=== PATIENT | female | born 1950 | race Caucasian/White ===

== ENCOUNTER 2020-05-23 09:57 | Outpatient (REF) | payer MEDICARE, SELFPAY | END 2020-05-23 09:58 | disposition home or self-care (01) | LOC: HO.HAP 09:57 | PROVIDERS: Visit Provider Internal Medicine | DX: Z46.1 Encounter for fitting and adjustment of hearing aid (principal); E03.9 Hypothyroidism, unspecified; E78.00 Pure hypercholesterolemia, unspecified | CPT/HCPCS: 92700 ==

== ENCOUNTER 2020-07-06 09:05 | Outpatient (REF) | payer MEDICARE, SELFPAY ==
--- NOTE | 2020-07-06 09:13 | MM_ITS ---
EXAMINATION: MM SCREENING DIGITAL BREAST TOMOSYNTHESIS, BILATERAL CLINICAL INFORMATION: Screening. Asymptomatic. The lifetime risk of breast cancer based on the Tyrer-Cuzick Model is 7%. COMPARISON: Mammography: 04/29/2019, 04/14/2018 TECHNIQUE: Digital breast tomosynthesis is performed in both the craniocaudal and mediolateral oblique views along with computer-aided detection (CAD). Synthesized 2D images are generated from the tomosynthesis. FINDINGS: There are scattered areas of fibroglandular density (ACR BI-RADS breast composition Category b). There are no significant masses, abnormal calcifications, or other abnormalities. There are numerous bilateral round, rim, predominantly dermal calcifications again seen. No significant changes. MM/MM tomosynthesis screening BI IMPRESSION: No mammographic evidence of malignancy. ASSESSMENT: BI-RADS 2: Benign RECOMMENDATION: Routine annual mammography screening. This patient's information was entered into a reminder system with a target due date for their next mammogram.
== END 2020-07-06 09:06 | disposition home or self-care (01) ==
LOC: HO.MAMMO 09:05
PROVIDERS: PCP Internal Medicine; Visit Provider Internal Medicine
DX: Z12.31 Encounter for screening mammogram for malignant neoplasm of breast (principal)
CPT/HCPCS: 77063; 77067

== ENCOUNTER 2020-07-21 06:07 | Outpatient (REF) | payer MEDICARE, BC, SELFPAY ==
[2020-07-21 11:21] LABS: MANUAL DIFF FLAG NO
[2020-07-21 11:27] LABS: Basophils Percent Auto 0.3 % (0-2); Eosinophils Absolute Auto 0.3 X10*3/uL (0.0-0.4); Eosinophils Percent Auto 3.6 % (0-4); Hematocrit 40.1 % (37-47); Hemoglobin 13.3 g/dl (12.0-16.0); Imm Gran Abs Auto 0.03 X10*3/uL (0.00-0.03); Imm Gran Pct Auto 0.3 % (0.0-0.4); Lymphocytes Absolute Auto 1.9 X10*3/uL (1.2-4.9); Lymphocytes Percent Auto 22.1 % (20-40); Mean Corpuscular HGB Conc 33.2 g/dl (31.0-35.0); Mean Corpuscular Hemoglobin 31.1 pg (27.0-33.0); Mean Corpuscular Volume 93.9 fL (80-98); Mean Platelet Volume 11.1 fL (9.4-12.3); Monocytes Absolute Auto 0.8 X10*3/uL (0.1-1.2); Monocytes Percent Auto 8.6 % (2-11); Neutrophils Absolute Auto 5.7 X10*3/uL (2.0-8.3); Neutrophils Percent Auto 65.1 % (45-73); Platelet Count 245 X10*3/uL (160-400); Red Blood Count 4.27 X10*6/uL (4.20-5.50); Red Cell Distribution Width 12.1 % (11.0-16.0); White Blood Count 8.7 X10*3/uL (4.8-10.8)
[2020-07-21 12:00] LABS: Thyroid Stimulating Hormone 0.97 uIU/mL (0.32-4.0)
[2020-07-21 12:06] LABS: Alanine Aminotransferase 19 U/L (0-31); Albumin Level 4.2 g/dL (3.5-5.0); Alkaline Phosphatase 78 U/L (39-117); Anion Gap 11 (12-20); Aspartate Amino Transferase 17 U/L (5-31); Bilirubin Total 0.5 mg/dL (0.0-1.0); Blood Urea Nitrogen 17 mg/dL (9-16); Calcium 8.8 mg/dL (8.4-10.2); Carbon Dioxide 29 mmol/L (22-29); Chloride 106 mmol/L (96-108); Cholesterol 148 mg/dL; Estimated Glomerular Filt Rate > 60; Glucose Fasting 80 mg/dL (60-99); HDL Cholesterol 48 mg/dL; LDL Cholesterol Calculated 75 mg/dl; Sodium 142 mmol/L (135-145); Total Protein 6.6 g/dL (6.5-8.0); Triglycerides 128 mg/dL
== END 2020-07-21 06:08 | disposition home or self-care (01) ==
LOC: HO.HMGCLDS 06:07
PROVIDERS: PCP Internal Medicine; Visit Provider Internal Medicine
DX: E03.9 Hypothyroidism, unspecified (principal); E78.00 Pure hypercholesterolemia, unspecified
CPT/HCPCS: 36415; 80053; 80061; 84443; 85025

== ENCOUNTER 2020-09-26 08:15 | Outpatient (REF) | payer MEDICARE, BC, SELFPAY ==
--- NOTE | 2020-09-26 12:35 | MHC.AU.P13 ---
Adult Audiological Evaluation Date of Visit: 09/26/20 Reason for Appointment: Audiological evaluation in order to monitor the status of Ms. Gaxiola's hearing loss. She has a known bilateral mixed hearing loss. She notes that she's been having increased difficulty hearing on the phone, especially if there is background noise. She denies any changes to her medical history. Previous Hearing Test Results: [facility] [place], [place]/18/2019- Mixed hearing loss bilaterally, left ear worse than right. Ear History: History of Ear Wax Buildup: Both Ears Previous Ear Surgery: Stapedectomy Medical History: Medical History: Unremarkable Medical History Hearing Instrument History- Right Ear: Cataract Lens Generator: [employer] Model: Gorsh B70-SP Serial Number: [id number] Battery Size: 13 Repair Warranty: 06/18/2020 Loss and Damage Warranty: 06/18/2020 Dispensed By: [facility] Date of Fittin04/17/2017 Hearing Instrument History- Left Ear: Cataract Lens Generator: [employer] Model: Gorsh B70-SP Serial Number: [id number] Battery Size: 13 Warranty: 06/18/2020 Loss and Damage Warranty: 06/18/2020 Dispensed By: [facility] Date of Fittin04/17/2017 Otoscopy: Right Ear: Unremarkable Left Ear: Partially occluded with cerumen Tympanometry: Tympanometry performed due to: Conductive component found in audiometric results Right Ear: Normal Middle Ear System (Type A) Left Ear: Normal Middle Ear System (Type A) Hearing Evaluation: Transducer(s) Used:Insert Earphones, Bone Conduction Method: Conventional Audiometry Stimuli Used: Pure Tones Right Ear: Description of Hearing: Moderate mixed hearing loss at 250-1000 Hz, sloping to a moderately severe sensorineural hearing loss at 2000 Hz, a moderately severe mixed hearing loss at 4000 Hz, and a severe hearing loss 1426-3361 Hz. Left Ear: Description of Hearing: Severe sloping to profound mixed hearing loss from 250-8000 Hz. Speech Recognition Threshold (SRT): Method Used: Monitored Live Voice Stimuli Used: Spondee Words Right Ear: 60 dBHL Left Ear: 85 dBHL Word Discrimination: Method: Recorded Lists Word Lists Used: NU-6 Right Ear: 84% at 85 dBHL Left Ear: 80% at 105 dBHL Comparison: Compared to the most recent evaluation: Hearing is stable. Recommendations: Audiological re-evaluation in one year. Follow-up with physician for cerumen removal. Hearing aid maintenance performed today. Diagnosis: Primary Diagnosis: H90.6 Mixed Hearing Loss, Bilateral Secondary Diagnosis: H61.22 Impacted Cerumen, Left Ear Services Performed: Comprehensive Audiological Evaluation (CPT 33168) Tympanometry (CPT 31810) Signature: Provider: Carlos Christianson, CCC-A
== END 2020-09-26 08:16 | disposition home or self-care (01) ==
LOC: HO.SH 08:15
PROVIDERS: Visit Provider Internal Medicine
DX: H90.6 Mixed conductive and sensorineural hearing loss, bilateral (principal); H61.22 Impacted cerumen, left ear
CPT/HCPCS: 92557; 92567

== ENCOUNTER 2020-11-07 06:52 | Outpatient (REF) | payer MEDICARE, BC, SELFPAY ==
[2020-11-07 11:08] LABS: MANUAL DIFF FLAG NO
[2020-11-07 11:18] LABS: Basophils Percent Auto 0.4 % (0-2); Eosinophils Absolute Auto 0.2 X10*3/uL (0.0-0.4); Hematocrit 41.8 % (37-47); Hemoglobin 13.8 g/dl (12.0-16.0); Imm Gran Abs Auto 0.01 X10*3/uL (0.00-0.03); Imm Gran Pct Auto 0.1 % (0.0-0.4); Lymphocytes Absolute Auto 1.9 X10*3/uL (1.2-4.9); Mean Corpuscular Hemoglobin 30.9 pg (27.0-33.0); Mean Corpuscular Volume 93.5 fL (80-98); Mean Platelet Volume 11.7 fL (9.4-12.3); Monocytes Absolute Auto 0.6 X10*3/uL (0.1-1.2); Monocytes Percent Auto 7.5 % (2-11); Neutrophils Absolute Auto 4.6 X10*3/uL (2.0-8.3); Platelet Count 253 X10*3/uL (160-400); Red Blood Count 4.47 X10*6/uL (4.20-5.50); White Blood Count 7.3 X10*3/uL (4.8-10.8)
[2020-11-07 12:09] LABS: Alanine Aminotransferase 16 U/L (0-31); Albumin Level 4.4 g/dL (3.5-5.0); Alkaline Phosphatase 79 U/L (39-117); Anion Gap 15 (12-20); Aspartate Amino Transferase 17 U/L (5-31); Bilirubin Total < 0.2 mg/dL (0.0-1.0); Blood Urea Nitrogen 16 mg/dL (9-16); Calcium 9.2 mg/dL (8.4-10.2); Carbon Dioxide 27 mmol/L (22-29); Chloride 105 mmol/L (96-108); Cholesterol 150 mg/dL; Estimated Glomerular Filt Rate > 60; Glucose Fasting 88 mg/dL (60-99); HDL Cholesterol 50 mg/dL; LDL Cholesterol Calculated 83 mg/dl; Potassium 3.9 mmol/L (3.3-5.1); Sodium 143 mmol/L (135-145); Total Protein 6.9 g/dL (6.5-8.0); Triglycerides 89 mg/dL
[2020-11-07 12:11] LABS: Thyroid Stimulating Hormone 0.27 uIU/mL (0.32-4.0)
== END 2020-11-07 06:53 | disposition home or self-care (01) ==
LOC: HO.HMGCLDS 06:52
PROVIDERS: PCP Internal Medicine; Visit Provider Internal Medicine
DX: E03.9 Hypothyroidism, unspecified (principal); E78.00 Pure hypercholesterolemia, unspecified; Z68.25 Body mass index [BMI] 25.0-25.9, adult
CPT/HCPCS: 36415; 80053; 80061; 84443; 85025

== ENCOUNTER 2020-11-16 10:32 | Outpatient (REF) | payer MEDICARE, BC, SELFPAY | END 2020-11-16 10:33 | disposition home or self-care (01) | LOC: HO.HMGCLDS 10:32 | PROVIDERS: PCP Internal Medicine; Visit Provider Internal Medicine | DX: E03.9 Hypothyroidism, unspecified (principal); E78.00 Pure hypercholesterolemia, unspecified; Z13.31 Encounter for screening for depression | CPT/HCPCS: 36415; 84443 ==

== ENCOUNTER 2020-12-30 06:32 | Outpatient (REF) | payer MEDICARE, BC, SELFPAY ==
[2020-12-30 11:15] LABS: MANUAL DIFF FLAG NO
[2020-12-30 11:27] LABS: Basophils Percent Auto 0.4 % (0-2); Eosinophils Absolute Auto 0.2 X10*3/uL (0.0-0.4); Eosinophils Percent Auto 2.7 % (0-4); Hematocrit 39.9 % (37-47); Hemoglobin 13.2 g/dl (12.0-16.0); Imm Gran Abs Auto 0.02 X10*3/uL (0.00-0.03); Imm Gran Pct Auto 0.3 % (0.0-0.4); Lymphocytes Absolute Auto 1.8 X10*3/uL (1.2-4.9); Lymphocytes Percent Auto 24.1 % (20-40); Mean Corpuscular HGB Conc 33.1 g/dl (31.0-35.0); Mean Corpuscular Volume 93.7 fL (80-98); Mean Platelet Volume 10.8 fL (9.4-12.3); Monocytes Absolute Auto 0.5 X10*3/uL (0.1-1.2); Monocytes Percent Auto 7.2 % (2-11); Neutrophils Absolute Auto 4.8 X10*3/uL (2.0-8.3); Neutrophils Percent Auto 65.3 % (45-73); Platelet Count 281 X10*3/uL (160-400); Red Blood Count 4.26 X10*6/uL (4.20-5.50); Red Cell Distribution Width 12.2 % (11.0-16.0); White Blood Count 7.3 X10*3/uL (4.8-10.8)
[2020-12-30 11:49] LABS: Alanine Aminotransferase 19 U/L (0-31); Albumin Level 4.3 g/dL (3.5-5.0); Alkaline Phosphatase 79 U/L (39-117); Anion Gap 12 (12-20); Aspartate Amino Transferase 16 U/L (5-31); Bilirubin Total 0.4 mg/dL (0.0-1.0); Blood Urea Nitrogen 19 mg/dL (9-16); Calcium 9.1 mg/dL (8.4-10.2); Carbon Dioxide 28 mmol/L (22-29); Chloride 103 mmol/L (96-108); Cholesterol 168 mg/dL; Estimated Glomerular Filt Rate > 60; Glucose Fasting 86 mg/dL (60-99); HDL Cholesterol 54 mg/dL; LDL Cholesterol Calculated 96 mg/dl; Potassium 3.5 mmol/L (3.3-5.1); Sodium 139 mmol/L (135-145); Total Protein 6.7 g/dL (6.5-8.0); Triglycerides 90 mg/dL
[2020-12-30 12:12] LABS: Thyroid Stimulating Hormone 0.94 uIU/mL (0.32-4.0)
== END 2020-12-30 06:33 | disposition home or self-care (01) ==
LOC: HO.HMGCLDS 06:32
PROVIDERS: PCP Internal Medicine; Visit Provider Internal Medicine
DX: Z00.00 Encounter for general adult medical examination without abnormal findings (principal); E11.9 Type 2 diabetes mellitus without complications; E03.9 Hypothyroidism, unspecified
CPT/HCPCS: 36415; 80053; 80061; 84443; 85025

== ENCOUNTER 2021-03-29 06:25 | Outpatient (REF) | payer MEDICARE, BC, SELFPAY ==
[2021-03-29 11:11] LABS: MANUAL DIFF FLAG NO
[2021-03-29 11:23] LABS: Basophils Percent Auto 0.3 % (0-2); Eosinophils Absolute Auto 0.2 X10*3/uL (0.0-0.4); Eosinophils Percent Auto 2.5 % (0-4); Hematocrit 38.8 % (37-47); Hemoglobin 12.8 g/dl (12.0-16.0); Imm Gran Abs Auto 0.02 X10*3/uL (0.00-0.03); Imm Gran Pct Auto 0.3 % (0.0-0.4); Lymphocytes Absolute Auto 1.9 X10*3/uL (1.2-4.9); Lymphocytes Percent Auto 24.1 % (20-40); Mean Corpuscular Hemoglobin 31.4 pg (27.0-33.0); Mean Corpuscular Volume 95.1 fL (80-98); Monocytes Absolute Auto 0.6 X10*3/uL (0.1-1.2); Monocytes Percent Auto 7.5 % (2-11); Neutrophils Absolute Auto 5.1 X10*3/uL (2.0-8.3); Neutrophils Percent Auto 65.3 % (45-73); Platelet Count 258 X10*3/uL (160-400); Red Blood Count 4.08 X10*6/uL (4.20-5.50); Red Cell Distribution Width 12.4 % (11.0-16.0); White Blood Count 7.8 X10*3/uL (4.8-10.8)
[2021-03-29 12:19] LABS: Alanine Aminotransferase 26 U/L (0-31); Albumin Level 4.1 g/dL (3.5-5.0); Alkaline Phosphatase 81 U/L (39-117); Anion Gap 11 (12-20); Aspartate Amino Transferase 18 U/L (5-31); Bilirubin Total 0.6 mg/dL (0.0-1.0); Blood Urea Nitrogen 17 mg/dL (9-16); Calcium 9.2 mg/dL (8.4-10.2); Carbon Dioxide 27 mmol/L (22-29); Chloride 107 mmol/L (96-108); Cholesterol 155 mg/dL; Estimated Glomerular Filt Rate > 60; HDL Cholesterol 52 mg/dL; LDL Cholesterol Calculated 82 mg/dl; Sodium 141 mmol/L (135-145); Total Protein 6.5 g/dL (6.5-8.0); Triglycerides 105 mg/dL
[2021-03-29 12:43] LABS: Thyroid Stimulating Hormone 1.47 uIU/mL (0.32-4.0)
[2021-03-29 12:53] LABS: Glucose Fasting 81 mg/dL (60-99)
== END 2021-03-29 06:26 | disposition home or self-care (01) ==
LOC: HO.HMGCLDS 06:25
PROVIDERS: PCP Internal Medicine; Visit Provider Internal Medicine
DX: Z00.00 Encounter for general adult medical examination without abnormal findings (principal); E11.9 Type 2 diabetes mellitus without complications; E03.9 Hypothyroidism, unspecified
CPT/HCPCS: 36415; 80053; 80061; 84443; 85025

== ENCOUNTER 2021-04-05 13:48 | Outpatient (REF) | payer SELFPAY ==
--- NOTE | 2021-04-05 14:13 | MHC.AU.P13 ---
Hearing Instrument Problem Date of Visit: 04/05/21 Right Ear: Puller Out: [employer] Model: BOLERO B70-SP Serial Number: [id number] Repair Warranty: 06/18/2020 Loss and Damage Warranty: 06/18/2020 Battery Size: 13 Color: CHAMPAGNE Tubin DOUBLE THICK Type of Mold: MICROSONIC CANAL SHELL Dispensed By: [facility] Date of Fittin04/17/2017 Left Ear: Puller Out: [employer] Model: BOLERO B70-SP Serial Number: [id number] Repair Warranty: 06/18/2020 Loss and Damage Warranty: 06/18/2020 Battery Size: 13 Color: CHAMPAGNE Tubing: #13 DOUBLE THICK Dispensed By: [facility] Date of Fittin04/17/2017 Follow-Up Summary: Patient had wax in tubing. Both aids cleaned and tubings changed - both amplifying clearly. Patient having trouble with right program switch - it does change but very hard to push. Tried cleaning - recommend sending to [employer] for repair. Patient will keep trying, see if it gets better when humidity drops, and will drop off if she wishes to get repaired. Quoted $315.00 Signature: Provider:
== END 2021-04-05 13:49 | disposition home or self-care (01) ==
LOC: HO.HAP 13:48
PROVIDERS: Visit Provider Internal Medicine
DX: Z46.1 Encounter for fitting and adjustment of hearing aid (principal); H90.6 Mixed conductive and sensorineural hearing loss, bilateral
CPT/HCPCS: 99499

== ENCOUNTER 2021-05-16 10:59 | Outpatient (REF) | payer SELFPAY ==
--- NOTE | 2021-05-16 11:21 | MHC.AU.P13 ---
Hearing Instrument Maintenance Date of Visit: 05/16/21 Right Ear: Driving School Instructor: Phon[employer] Model: BOLERO B70-SP Serial Number: [id number] Repair Warranty: 06/18/2020 Loss and Damage Warranty: 06/18/2020 Battery Size: 13 Color: CHAMPAGNE Tubin DOUBLE THICK Type of Mold: MICROSONIC CANAL SHELL Dispensed By: [facility] Date of Fittin04/17/2017 Left Ear: Driving School Instructor: Phon[employer] Model: BOLERO B70-SP Serial Number: [id number] Repair Warranty: 06/18/2020 Loss and Damage Warranty: 06/18/2020 Battery Size: 13 Color: CHAMPAGNE Tubing: #13 DOUBLE THICK Dispensed By: [facility] Date of Fittin04/17/2017 Follow-Up Summary: Right aid and old aids brought in for cleaning. All aids cleaned and retubed - all amplifying clearly. Recommendations: Recommendations: Hearing instrument follow-up or maintenance as needed. Diagnosis Code(s): Primary Diagnosis: H90.6 Mixed Hearing Loss, Bilateral Signature: Provider: ISAMAR Gilmore-
== END 2021-05-16 11:00 | disposition home or self-care (01) ==
LOC: HO.HAP 10:59
PROVIDERS: Visit Provider Internal Medicine
DX: Z01.419 Encounter for gynecological examination (general) (routine) without abnormal findings (principal)
CPT/HCPCS: 99499

== ENCOUNTER 2021-08-16 08:45 | Outpatient (REF) | payer MEDICARE, BC, SELFPAY ==
--- NOTE | ~2021-08-16 | MM_ITS ---
EXAMINATION: BONE DENSITOMETRY CLINICAL INDICATION: Asymptomatic menopausal state. COMPARISON: Baseline BD dated 12/29/2015. TECHNIQUE: Using a Wearable Security DXA System (software version: 13.1) manufactured by [employer], dual-energy x-ray absorptiometry was performed of the lumbar spine and left hip. The images are of good technical quality. Summary results are attached. FINDINGS: AP SPINE L1-L4: Current: BMD 0.767 g/cm2, Z-score -1.4, T-score -3.4, osteoporosis, 1.2% decrease from baseline (<5% change is not significant). Baseline: BMD 0.776 g/cm2. LEFT FEMUR, NECK: Current: BMD 0.645 g/cm2, Z-score -0.9, T-score -2.8, osteoporosis. Baseline: BMD 0.799 g/cm2. LEFT FEMUR, TOTAL: Current: BMD 0.559 g/cm2, Z-score -1.8, T-score -3.6, osteoporosis, 24.8% decrease from baseline (<5% change is not significant). Baseline: BMD 0.743 g/cm2. IDENTIFIED RISK FACTORS: Menopause. HISTORY OF FRACTURE: None listed. MEDICATIONS: Multivitamins. MM/XR DEXA axial skeleton IMPRESSION: 1. DIAGNOSIS: Osteoporosis based on the lowest T-score value of -3.6 in the total femur applying World Health Organization criteria. 2. 10-YEAR FRACTURE RISK PREDICTION, FRAX: According to the guidelines, FRAX calculation should only be performed on patients in the osteopenia bone density category. 3. Treatment Recommendations: NOF guidelines recommend consideration for treatment in postmenopausal women and men age 50 and older presenting with the following: -A hip or vertebral (clinical or morphometric) fracture. -T-score less than or equal to -2.5 at the femoral neck or spine after appropriate evaluation to exclude secondary causes. -Low bone mass at the hip or spine and a 10-year fracture probability by FRAX of greater than or equal to 3% for hip fracture or greater than or equal to 20% for major osteoporotic fracture based on the [place] adapted WHO algorithm. 4. Other Recommendations: All treatment decisions require clinical judgment and consideration of individual patient factors, including patient preferences, comorbidities, previous drug use, risk factors not captured in the FRAX model (e.g. frailty, falls, vitamin D deficiency, increased bone turnover, interval significant decline in bone density) and possible under or overestimation of fracture risk by FRAX. Additional medical evaluation for secondary cause of low bone mineral density may be appropriate. FUTURE SCAN RECOMMENDATION: People with diagnosed cases of osteoporosis or at high risk for fracture should have regular bone mineral density tests. For patients eligible for Medicare, routine testing is allowed once every 2 years. The testing frequency can be increased to one year for patients who have rapidly progressing disease, those who are receiving or discontinuing medical therapy to restore bone mass, or have additional risk factors.
--- NOTE | ~2021-08-16 | MM_ITS ---
EXAMINATION: MM SCREENING DIGITAL BREAST TOMOSYNTHESIS, BILATERAL CLINICAL INFORMATION: Screening. Asymptomatic. The lifetime risk of breast cancer based on the Tyrer-Cuzick Model is 7%. COMPARISON: Mammography: 07/06/2020, 04/29/2019, 04/14/2018 TECHNIQUE: Digital breast tomosynthesis is performed in both the craniocaudal and mediolateral oblique views along with computer-aided detection (CAD). Synthesized 2D images are generated from the tomosynthesis. Additional right MLO view is provided. FINDINGS: There are scattered areas of fibroglandular density (ACR BI-RADS breast composition Category b). There are no significant masses, abnormal calcifications, or other abnormalities. No significant changes from prior exams. MM/MM tomosynthesis screening BI IMPRESSION: No mammographic evidence of malignancy. ASSESSMENT: BI-RADS 2: Benign RECOMMENDATION: Routine annual mammography screening. This patient's information was entered into a reminder system with a target due date for their next mammogram.
== END 2021-08-16 08:46 | disposition home or self-care (01) ==
LOC: HO.MAMMO 08:45
PROVIDERS: Visit Provider Obstetrics & Gynecology
DX: Z12.31 Encounter for screening mammogram for malignant neoplasm of breast (principal); Z13.820 Encounter for screening for osteoporosis; M81.0 Age-related osteoporosis without current pathological fracture; Z78.0 Asymptomatic menopausal state; Z79.899 Other long term (current) drug therapy
CPT/HCPCS: 77063; 77067; 77080

== ENCOUNTER 2021-10-30 08:21 | Outpatient (REF) | payer MEDICARE, BC, SELFPAY ==
--- NOTE | 2021-11-06 12:09 | MHC.AU.AHA ---
Adult Audiological Evaluation Date of Visit: 10/30/21 Child Care Supervisor Used: Not Applicable Reason for Appointment: Audiologic re-evaluation to determine possible change in hearing abilityJuan F Mederos has a history of asymmetric mixed hearing loss due to history of Otosclerosis with previous Stapedectomy surgery. Previous Hearing Test Results: 09/26/2020 [facility] Right ear - Moderate to severe mixed hearing loss with 84% speech understanding at 85 dB HL Left ear - Severe to profound mixed hearing loss with 80% speech discrimination at 105 dB HL Ear History: Previous Ear Surgery: Stapedectomy Medical History: Medical History: Thyroid Disease Medication List: Levothyroxine and Atorvastatin Hearing Instrument History- Right Ear: Aerospace Physiological Technician: [employer] Model: Hospitality [employer]ers0-SP Serial Number: [id number] Battery Size: 13 Repair Warranty: 06/18/2020 Loss and Damage Warranty: 06/18/2020 Dispensed By: [facility] Date of Fittin04/17/2017 Hearing Instrument History- Left Ear: Aerospace Physiological Technician: [employer] Model: [place] B70-SP Serial Number: [id number] Battery Size: 13 Warranty: 06/18/2020 Loss and Damage Warranty: 06/18/2020 Dispensed By: [facility] Date of Fittin04/17/2017 Otoscopy: Right Ear: Unremarkable Left Ear: Unremarkable Tympanometry: Tympanometry performed due to: History of Otosclerosis Right Ear: Normal Middle Ear System (Type A) Left Ear: Normal Middle Ear System (Type A) Hearing Evaluation: Transducer(s) Used: Insert Earphones Bone Conduction Method: Conventional Audiometry Stimuli Used: Pure Tones Right Ear: Description of Hearing: Moderate to severe mixed hearing loss Left Ear: Description of Hearing: Severe to profound mixed hearing loss Speech Recognition Threshold (SRT): Method Used: Monitored Live Voice Stimuli Used: Spondee Words Right Ear: 50 dB HL Left Ear: 80 dB HL Word Discrimination: Method: Recorded Lists Word Lists Used: NU-6 Right Ear: 88% at 85 dB HL Left Ear: 92% at 105 dB HL Most Comfortable Level (MCL): Right Ear: 85 dB HL Left Ear: 105 dB HL Comparison: Compared to the most recent evaluation: Hearing is stable. Recommendations: Audiological re-evaluation in one year. Hearing aid maintenance performed today. Diagnosis: Primary Diagnosis: H90.6 Mixed Hearing Loss, Bilateral Signature: Provider: Carlos Orellana, [facility]
== END 2021-10-30 08:22 | disposition home or self-care (01) ==
LOC: HO.SH 08:21
PROVIDERS: Visit Provider Internal Medicine
DX: Z01.118 Encounter for examination of ears and hearing with other abnormal findings (principal); H90.6 Mixed conductive and sensorineural hearing loss, bilateral
CPT/HCPCS: 92557; 92567

== ENCOUNTER 2021-11-07 06:33 | Outpatient (REF) | payer MEDICARE, BC, SELFPAY ==
[2021-11-07 12:01] LABS: Cholesterol 142 mg/dL; HDL Cholesterol 50 mg/dL; LDL Cholesterol Calculated 65 mg/dl; Triglycerides 137 mg/dL
[2021-11-07 12:09] LABS: Thyroid Stimulating Hormone 0.19 uIU/mL (0.32-4.0)
== END 2021-11-07 06:34 | disposition home or self-care (01) ==
LOC: HO.HMGCLDS 06:33
PROVIDERS: Visit Provider Internal Medicine
DX: E03.9 Hypothyroidism, unspecified (principal); E11.9 Type 2 diabetes mellitus without complications
CPT/HCPCS: 36415; 80061; 84443

== ENCOUNTER 2022-03-22 10:45 | Outpatient (REF) | payer SELFPAY | END 2022-03-22 10:46 | disposition home or self-care (01) | LOC: HO.HAP 10:45 | PROVIDERS: Visit Provider Internal Medicine | DX: Z46.1 Encounter for fitting and adjustment of hearing aid (principal); H90.3 Sensorineural hearing loss, bilateral | CPT/HCPCS: 99499; V5299 ==

== ENCOUNTER 2022-05-11 06:55 | Outpatient (REF) | payer MEDICARE, BC, SELFPAY ==
[2022-05-11 11:45] LABS: Cholesterol 164 mg/dL; HDL Cholesterol 61 mg/dL; LDL Cholesterol Calculated 87 mg/dl; Triglycerides 84 mg/dL
[2022-05-11 11:53] LABS: Thyroid Stimulating Hormone 1.23 uIU/mL (0.32-4.0)
== END 2022-05-11 06:56 | disposition home or self-care (01) ==
LOC: HO.HMGCLDS 06:55
PROVIDERS: PCP Internal Medicine; Visit Provider Internal Medicine
DX: Z00.00 Encounter for general adult medical examination without abnormal findings (principal)
CPT/HCPCS: 36415; 80061; 84443

== ENCOUNTER 2022-05-17 09:44 | Outpatient (REF) | payer MEDICARE, BC, SELFPAY | END 2022-05-17 09:45 | disposition home or self-care (01) | LOC: HO.HAP 09:44 | PROVIDERS: Visit Provider Internal Medicine | DX: Z13.89 Encounter for screening for other disorder (principal) ==

== ENCOUNTER 2022-05-21 12:56 | Outpatient (REF) | payer SELFPAY | END 2022-05-21 12:57 | disposition home or self-care (01) | LOC: HO.HAP 12:56 | PROVIDERS: Visit Provider Internal Medicine | DX: Z46.1 Encounter for fitting and adjustment of hearing aid (principal) | CPT/HCPCS: 99499 ==

== ENCOUNTER 2022-08-22 08:48 | Outpatient (REF) | payer MEDICARE, BC, SELFPAY ==
--- NOTE | ~2022-08-22 | MM_ITS ---
EXAMINATION: MM SCREENING DIGITAL BREAST TOMOSYNTHESIS, BILATERAL CLINICAL INFORMATION: Screening. Asymptomatic. Family history breast cancer, mother. The lifetime risk of breast cancer based on the Tyrer-Cuzick Model is 6%. COMPARISON: Mammography: 08/16/2021, 07/06/2020, 04/29/2019 TECHNIQUE: Digital breast tomosynthesis is performed in both the craniocaudal and mediolateral oblique views along with computer-aided detection (CAD). Synthesized 2D images are generated from the tomosynthesis. Additional left MLO view is provided. FINDINGS: There are scattered areas of fibroglandular density (ACR BI-RADS breast composition Category b). There are no significant masses, abnormal calcifications, or other abnormalities. There are no significant changes from prior exams. No developing density or architectural abnormality. MM/MM tomosynthesis screening BI IMPRESSION: No mammographic evidence of malignancy. ASSESSMENT: BI-RADS 1: Negative RECOMMENDATION: Routine annual mammography screening. This patient's information was entered into a reminder system with a target due date for their next mammogram.
== END 2022-08-22 08:49 | disposition home or self-care (01) ==
LOC: HO.MAMMO 08:48
PROVIDERS: Visit Provider Internal Medicine
DX: Z12.31 Encounter for screening mammogram for malignant neoplasm of breast (principal)
CPT/HCPCS: 77063; 77067

== ENCOUNTER 2022-11-09 06:49 | Outpatient (REF) | payer MEDICARE, BC, SELFPAY ==
[2022-11-09 11:54] LABS: Cholesterol 161 mg/dL; HDL Cholesterol 55 mg/dL; LDL Cholesterol Calculated 86 mg/dl; Triglycerides 103 mg/dL
[2022-11-09 12:11] LABS: Thyroid Stimulating Hormone 1.33 uIU/mL (0.32-4.0)
== END 2022-11-09 06:50 | disposition home or self-care (01) ==
LOC: HO.HMGCLDS 06:49
PROVIDERS: PCP Internal Medicine; Visit Provider Internal Medicine
DX: E03.9 Hypothyroidism, unspecified (principal); E78.5 Hyperlipidemia, unspecified
CPT/HCPCS: 36415; 80061; 84443

== ENCOUNTER 2023-03-15 10:35 | Outpatient (REF) | payer MEDICARE, BC, SELFPAY | END 2023-03-15 10:36 | disposition home or self-care (01) | LOC: HO.SH 10:35 | PROVIDERS: Visit Provider Internal Medicine | DX: Z01.118 Encounter for examination of ears and hearing with other abnormal findings (principal); H90.6 Mixed conductive and sensorineural hearing loss, bilateral | CPT/HCPCS: 92557 ==

== ENCOUNTER 2023-03-15 11:54 | Outpatient (REF) | payer SELFPAY ==
--- NOTE | 2023-03-15 12:13 | MHC.AU.HA3 ---
Hearing Instrument Follow-Up- Binaural Date of Visit: 03/15/23 Right Ear: Ousmane, Model, Color, Serial Number: Agustin George B70-SP SN: [id number] Color: Champagne Manager New Product Repair Warranty: 06/18/2020 Manager New Product Loss and Damage Warranty: 06/18/2020 Battery Size: 13 Earmold/Dome/CShell/SlimTip:Microsonic acrylic canal shell with small vent Dispensed By: [facility] Date of Fittin04/17/2017 Left Ear: Ousmane, Model, Color, Serial Number: Agustin George B70-SP SN: [id number] Color: Champagne Manager New Product Repair Warranty: 06/18/2020 Manager New Product Loss and Damage Warranty: 06/18/2020 Battery Size: 13 Earmold/Dome/CShell/SlimTip: Microsonic acrylic canal shell with small vent Dispensed By: [facility] Date of Fittin04/17/2017 Follow-Up Summary: Rosa M returned for routine hearing aid maintenance following updated audiogram (see separate report). The left tubing has been continuously slipping out of the ear mold. Cleaned both hearing aids and ear molds. Replaced tubing. Provided green ear mold vent cleaning tool at Rosa M's request. Otherwise, the hearing aids have been working well and Rosa M is having no other issues at this time. Briefly discussed possibility of new hearing aids due to the age of her current pair. Rosa M is satisfied with her hearing aids at this time as they are still meeting her needs but will consider new hearing aids, if necessary, in the future. Recommendations: Hearing instrument maintenance in 6 months, or sooner if needed. Diagnosis Code(s): Primary Diagnosis: H90.6 Mixed Hearing Loss, Bilateral Signature: Provider: Angélica Bhatti, [facility]
== END 2023-03-15 11:55 | disposition home or self-care (01) ==
LOC: HO.HAP 11:54
PROVIDERS: Visit Provider Internal Medicine
DX: Z46.1 Encounter for fitting and adjustment of hearing aid (principal); H90.6 Mixed conductive and sensorineural hearing loss, bilateral
CPT/HCPCS: 92593

== ENCOUNTER 2023-05-20 06:25 | Outpatient (REF) | payer MEDICARE, BC, SELFPAY ==
[2023-05-20 11:18] LABS: MANUAL DIFF FLAG NO
[2023-05-20 11:50] LABS: Basophils Percent Auto 0.4 % (0-2); Eosinophils Absolute Auto 0.2 X10*3/uL (0.0-0.4); Eosinophils Percent Auto 2.4 % (0-4); Hematocrit 39.4 % (37.0-47.0); Hemoglobin 13.2 g/dl (12.0-16.0); Imm Gran Abs Auto 0.02 X10*3/uL (0.00-0.03); Imm Gran Pct Auto 0.2 % (0.0-0.4); Lymphocytes Absolute Auto 1.8 X10*3/uL (1.2-4.9); Lymphocytes Percent Auto 21.8 % (20-40); Mean Corpuscular HGB Conc 33.5 g/dl (31.0-35.0); Mean Corpuscular Hemoglobin 31.4 pg (27.0-33.0); Mean Corpuscular Volume 93.8 fL (80.0-98.0); Mean Platelet Volume 11.3 fL (9.4-12.3); Monocytes Absolute Auto 0.7 X10*3/uL (0.1-1.2); Monocytes Percent Auto 8.2 % (2-11); Neutrophils Absolute Auto 5.4 x10*3/uL (2.0-8.3); Platelet Count 251 X10*3/uL (160-400); Red Cell Distribution Width 12.6 % (11.0-16.0); White Blood Count 8.1 X10*3/uL (4.8-10.8)
[2023-05-20 12:05] LABS: Alanine Aminotransferase 22 U/L (0-31); Alkaline Phosphatase 71 U/L (39-117); Anion Gap 11 (12-20); Aspartate Amino Transferase 23 U/L (5-31); Bilirubin Total 0.5 mg/dL (0.0-1.0); Blood Urea Nitrogen 17 mg/dL (9-16); Calcium 9.1 mg/dL (8.4-10.2); Carbon Dioxide 26 mmol/L (22-29); Chloride 108 mmol/L (96-108); Cholesterol 160 mg/dL (<200); Estimated Glomerular Filt Rate > 60; Glucose Fasting 96 mg/dL (60-99); HDL Cholesterol 59 mg/dL (>40); LDL Cholesterol Calculated 78 mg/dL (<100); Potassium 3.6 mmol/L (3.3-5.1); Sodium 141 mmol/L (135-145); Total Protein 6.6 g/dL (6.5-8.0); Triglycerides 119 mg/dL (<150)
[2023-05-20 12:27] LABS: Thyroid Stimulating Hormone 0.95 uIU/mL (0.32-4.0)
== END 2023-05-20 06:26 | disposition home or self-care (01) ==
LOC: HO.HMGCLDS 06:25
PROVIDERS: PCP Internal Medicine; Visit Provider Internal Medicine
DX: D64.9 Anemia, unspecified (principal); E03.9 Hypothyroidism, unspecified; N28.9 Disorder of kidney and ureter, unspecified; E78.5 Hyperlipidemia, unspecified
CPT/HCPCS: 36415; 80053; 80061; 84443; 85025

== ENCOUNTER 2023-05-22 09:20 | Outpatient (AMB) | payer MEDICARE, BC, SELFPAY ==
[2023-05-22 09:27] VITALS: BP 130/52; PULSE 60; O2SAT 99; BMI 24.4
--- NOTE | 2023-05-22 09:27 | MHC.PC.OV ---
Vital Signs 05/22/23 09:27 Height 5 ft Weight 125 lb BMI 24.4 BP 130/52 L Blood Pressure Location Lt brachial Position Sitting Pulse 60 Pulse Source Pulse Oximeter Pulse Oximetry (%) 99 Oxygen Delivery Method Room Air Intake Visit Reasons: 4 mth f/u Automation Software Engineer: Not Required per policy Accompanied by: Self / Same As Patient Allergies bee venom protein (honey bee) Allergy (Severe, Verified 05/22/23 09:27) Anaphylaxis Medication List - Last Reconciled 05/22/23 by Carlos Spivey MD atorvastatin 20 mg PO DAILY levothyroxine 112 mcg PO DAILY Tobacco use date assessed: 11/14/22 Fall risk assessment: No Falls in past year Last assessed Fall Risk: 05/22/23 Dental Screening Dental Screen Date: 05/22/23 Did you have a dental visit in the last 12 months?: Yes Did you have a dental problem in the last 6 months where you did not have access to dental care?: No Was dental information given to patient?: Patient has dentist HPI 4 mth f/u HPI Details hyperlipidemia and hypothyroidism; stable on rx PFSH Medical History Post-menopausal Hypertension History of high cholesterol Thyroid disease Surgical History History of colonoscopy H/O stapedectomy Hx of tubal ligation Hx of tonsillectomy Family History Mother Dementia GERD (gastroesophageal reflux disease) Mental health disorder History of breast cancer Father No problems noted. Social History Housing: House Alcohol intake: current Alcohol intake frequency: holidays/special occasions only Patient Tobacco Use Status: Never used Tobacco e-Cigarette/Vaping Use: Currently Using Second Hand Smoke Exposure: Yes service: No Current occupational status: retired Current occupational exposures/hazards: No Cognitive needs: No Hearing needs: Yes Vision needs: Yes Questionnaire PHQ-9 Over the last 2 weeks, how often have you been bothered by any of the following problems? 1. Little interest or pleasure in doing things: not at all 2. Feeling down, depressed, or hopeless: not at all 3. Trouble falling or staying asleep, or sleeping too much: not at all 4. Feeling tired or having little energy: not at all 5. Poor appetite or overeating: not at all 6. Feeling bad about yourself - or that you are a failure or have let yourself or your family down: not at all 7. Trouble concentrating on things, such as reading the newspaper or watching television: not at all 8. Moving or speaking so slowly that other people could have noticed. Or the opposite - being so fidgety or restless that you have been moving around a lot more than usual: not at all 9. Thoughts that you would be better off or of hurting yourself in some way: not at all Total score: 0 Depression Screening Interpretation: Negative Depression Screening Done: Yes 79405 - PHQ-9 Billing: Yes Source: Developed by Drs. Aubrey Sunshine, Mary Grace Wiseman, Breezy Edmond and colleagues, with an educational nithin from [facility]. Thrive Questionnaire Date Thrive assessed: 11/14/22 AUDIT C Alcohol Use Questionnaire (AUDIT-C) 1. How often do you have a drink containing alcohol?: Never Total Score: 0 Score Reviewed/Action Taken: Yes RAMSEY-7 AMB Questionnaire RAMSEY-7 Date RAMSEY - 7 assessed: 11/14/22 Source: Developed by Drs. Aubrey Sunshine, Mary Grace Wiseman, Breezy Edmond and colleagues, with an educational nithin from [facility]. Review of Systems Const Denies chills, Denies headache(s) and Denies weight loss ENT Denies headache(s) Card Denies chest pain, Denies syncope, Denies irregular heart rhythm and Denies dyspnea Resp Denies chest congestion, Denies cough and Denies dyspnea GI Denies abdominal pain, Denies change in stool character, Denies nausea and Denies vomiting Musc Denies deformity and Denies joint swelling Neuro Denies syncope and Denies headache(s) Physical exam (Primary Care) Vital Signs: Last Vital Signs Pulse 60 05/22/23 09:27 BP 130/52 L 05/22/23 09:27 Pulse Ox 99 05/22/23 09:27 Oxygen Delivery Method Room Air 05/22/23 09:27 BMI result Body Mass Index 24.4 Tobacco/Smoking Status: Tobacco use Status Tobacco use date assessed 11/14/22 05/22/23 09:28 Patient Tobacco Use Status Never used Tobacco 05/22/23 09:28 e-Cigarette/Vaping Use Currently Using 05/22/23 09:28 PHQ-9: PHQ-9 Score PHQ-9: Total score 0 05/22/23 09:48 Depression Screening Interpretation: Negative Thrive Assessment: Date of Thrive Assessment Date Thrive assessed 11/14/22 05/22/23 09:28 Const General: cooperative, comfortable, no acute distress and alert Neck Neck: Yes no lymphadenopathy Thyroid: Thyroid normal Resp Effort & Inspection: normal respiratory effort Auscultation: clear to auscultation bilaterally Percussion: percussion normal Cardio Jugular venous distension: no JVD Palpation: normal PMI Rate: regular rate Rhythm: regular rhythm Heart sounds: S1 normal heart sound present and S2 normal heart sound present GI Inspection: Yes normal to inspection Palpation (GI): No hepatosplenomegaly present Skin General skin exam: no rashes or lesions noted Extrem General: Yes no clubbing, cyanosis or edema Office Procedures Flu Questionnaire Does the patient have a severe egg allergy?: No Does the patient have severe life threatening allergies?: No Does the patient have a fever or illness today?: No Has the patient ever had Guillain-[place] Syndrome?: No Has the patient ever had any past reaction to a flu shot?: No Immunizations flu vacc [id number] 6mos up(PF) 60 mcg(15 mcgx4)/0.5 mL IM syringe Performing Provider: Carlos Spivey MD Performing Location: [facility] Administered by: STEPHANIE Norris on 05/22/23 09:48 Dose Route Admin Location Dispensed Lot Number Expiration Date NDC Office Secretary 0.5 mL IM Right Deltoid 0.5 mL [id number] 02/16/24 72106-383-64 Intapp VIS Given Date VIS Provided VIS Publication Date 05/22/23 Single Vaccine 21 Eligibility Eligibility Date Funding Source Not [facility] Eligible 05/22/23 Private Assessment and Plan Assessment & Plan (1) Hypothyroid: Code(s): E03.9 - Hypothyroidism, unspecified Plan: stable; same rx (2) Hyperlipidemia: Code(s): E78.5 - Hyperlipidemia, unspecified Plan: stable; same rx Orders: Orders Influenza [id number] Immunization Today Z23 - Encounter for immunization Lipid Panel Today E78.5 - Hyperlipidemia, unspecified Thyroid Stimulating Hormone Today E03.9 - Hypothyroidism, unspecified Coding Level of Care Code Est Pt Level 3 (93120) Diagnoses Hypothyroid E03.9 Hyperlipidemia E78.5
== END 2023-05-22 09:53 | disposition home or self-care (01) ==
PROVIDERS: PCP Internal Medicine; Visit Provider Internal Medicine
DX: E03.9 Hypothyroidism, unspecified (principal); E78.5 Hyperlipidemia, unspecified; Z23 Encounter for immunization
CPT/HCPCS: 90471; 90686; 99213

== ENCOUNTER 2023-08-30 09:14 | Outpatient (REF) | payer MEDICARE, BC, SELFPAY | END 2023-08-30 09:15 | disposition home or self-care (01) | LOC: HO.MAMMO 09:14 | PROVIDERS: PCP Internal Medicine; Visit Provider Internal Medicine | DX: Z12.31 Encounter for screening mammogram for malignant neoplasm of breast (principal) | CPT/HCPCS: 77063; 77067 ==

== ENCOUNTER → 2023-08-30 09:30 | Outpatient (BNV) | payer MEDICARE, BC, SELFPAY | PROVIDERS: PCP Internal Medicine; Visit Provider Radiology Diagnostic Radiology | DX: Z12.31 Encounter for screening mammogram for malignant neoplasm of breast (principal) | CPT/HCPCS: 77063; 77067 ==

== ENCOUNTER 2023-09-10 09:36 | Outpatient (AMB) | payer MEDICARE, BC, SELFPAY ==
--- NOTE | 2023-09-10 09:45 | MHC.OFFVIS ---
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 She is doing well with no concerns. Attempting to eat a healthy diet with calcium and vitamin D and stays active with exercise, and dances at the [facility]. Currently not sexually active, has medical concerns. Denies any vaginal dryness or irritation. Last pap smear; 2018-all negative in the past. Last mammogram; pending read. Denies any family history of breast, ovarian or colon cancer. [facility] Medical History Post-menopausal Hypertension History of high cholesterol Thyroid disease Surgical History History of colonoscopy H/O stapedectomy Hx of tubal ligation Hx of tonsillectomy Family History Mother Dementia GERD (gastroesophageal reflux disease) Mental health disorder History of breast cancer Father No problems noted. Social History Housing: House Alcohol intake: current Alcohol intake frequency: holidays/special occasions only Patient Tobacco Use Status: Never used Tobacco e-Cigarette/Vaping Use: Never Used Second Hand Smoke Exposure: Yes service: No Current occupational status: retired Current occupational exposures/hazards: No Sexually active: No Cognitive needs: No Hearing needs: Yes Vision needs: Yes Female Reproductive History Menstrual control method: permanent sterilization Permanent Sterilization: BTL Menopause type: natural Total pregnancies: 3 Full term: 3 Number of Living Children: 3 Date of Mammogram: 08/30/23 Review of Systems Const All systems reviewed & are unremarkable except as noted in HPI and below Reports as per HPI Eyes Reports no additional complaints ENT Reports no additional complaints Card Reports no additional complaints Resp Reports no additional complaints GI Reports as per HPI and Reports no additional complaints Reports as per HPI Musc Reports no additional complaints Skin/Breast Reports as per HPI Neuro Reports no additional complaints Psych Reports no additional complaints Endo Reports no additional complaints Sherwin/Lymph Reports no additional complaints Aller/Immun Reports no additional complaints Physical Exam Vital Signs: Last Vital Signs BP 118/68 09/10/23 09:46 BMI result Body Mass Index 23.8 Const General: cooperative, healthy appearing, no acute distress, well developed and alert Orientation/consciousness: patient oriented x3 HEENT Head: Yes normal to inspection Eyes General: appearance normal, both eyes and all related structures Neck Neck: Yes normal visual inspection Thyroid: Thyroid normal Chest Chest palpation & inspection: normal inspection of the chest and other (no puckering, dimpling, peau de orange, retraction, discharge, masses) Breast/axilla inspection: normal inspection of the breasts Breast/axilla palpation: normal palpation of the breasts Resp Effort & Inspection: normal respiratory effort GI Inspection: Yes normal to inspection Palpation (GI): Soft to palpation Rectal Exam - Female: deferred General: Yes bladder normal to palpation External Female Exam: normal external appearance and normal appearance of the urethra Speculum Exam - Vagina: normal appearance of the vagina, normal palpation, normal vaginal discharge and vagina atrophic Speculum Exam - Cervix: normal appearance of the cervix and normal palpation Bimanual exam- vagina & uterus: normal bimanual exam, normal palpation, uterine size normal, bladder normal to palpation, normal palpation and non-tender Bimanual Exam- Adnexa, other: no masses Skin General skin exam: no rashes or lesions noted Rashes: no rashes Neuro General: patient oriented x3 Cognition (Neuro): normal cognition Extrem General: Yes normal to inspection Psych Attitude: cooperative Thought process: Normal thought process present Assessment & Plan Assessment & Plan (1) Encounter for well woman exam with routine gynecological exam: Code(s): Z01.419 - Encounter for gynecological examination (general) (routine) without abnormal findings Plan Discussed: Current recommendations for pap smears per ASCCP guidelines. Breast awareness, periodic self breast exams and yearly mammogram. Maintain a healthy lifestyle, well balanced diet including Calcium 1,200 mg and Vitamin D 800 IU daily, and routine exercise. Contact the office with any postmenopausal bleeding. Sign up for the patient portal if not already enrolled. All of her questions and concerns were addressed to the best of my ability. This note is constructed using voice recognition software. While every effort has been made to ensure accuracy, corrugator helper errors may have been included. 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 Coding Level of Care Code Est Pt Prev Care >65y(73113) Diagnoses Encounter for well woman exam with routine gynecological exam Z01.419
[2023-09-10 09:46] VITALS: BP 118/68; BMI 23.8
== END 2023-09-10 10:19 | disposition home or self-care (01) ==
LOC: HO.HWS 09:36
PROVIDERS: PCP Internal Medicine; Visit Provider Advanced Practice Midwife
DX: Z01.419 Encounter for gynecological examination (general) (routine) without abnormal findings (principal)
CPT/HCPCS: G0101

== ENCOUNTER → 2023-09-10 09:36 | Outpatient (BNVA) | payer MEDICARE, BC, SELFPAY | PROVIDERS: PCP Internal Medicine; Visit Provider Advanced Practice Midwife | DX: Z01.419 Encounter for gynecological examination (general) (routine) without abnormal findings (principal) | CPT/HCPCS: G0101 ==

== ENCOUNTER 2023-11-22 06:36 | Outpatient (REF) | payer MEDICARE, BC, SELFPAY ==
[2023-11-22 11:10] LABS: Cholesterol 131 mg/dL (<200); HDL Cholesterol 54 mg/dL (>40); LDL Cholesterol Calculated 63 mg/dL (<100); Triglycerides 73 mg/dL (<150)
[2023-11-22 11:28] LABS: Thyroid Stimulating Hormone 1.07 uIU/mL (0.32-4.0)
== END 2023-11-22 06:37 | disposition home or self-care (01) ==
LOC: HO.HMGCLDS 06:36
PROVIDERS: PCP Internal Medicine; Visit Provider Internal Medicine
DX: E03.9 Hypothyroidism, unspecified (principal); E78.5 Hyperlipidemia, unspecified
CPT/HCPCS: 36415; 80061; 84443

== ENCOUNTER 2023-11-25 09:07 | Outpatient (AMB) | payer MEDICARE, BC, SELFPAY ==
[2023-11-25 09:09] VITALS: BP 136/60; PULSE 61; O2SAT 98; BMI 23.4
--- NOTE | 2023-11-25 09:09 | A.OFFPC_ITS ---
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 Allergies bee venom protein (honey bee) Allergy (Severe, Verified 11/25/23 09:10) Anaphylaxis Medication List - Last Reconciled 11/25/23 by Carlos Spivey MD atorvastatin 20 mg PO DAILY levothyroxine 112 mcg PO DAILY Tobacco use date assessed: 11/25/23 Fall risk assessment: No Falls in past year Last assessed Fall Risk: 11/25/23 Dental Screening Dental Screen Date: 11/25/23 Did you have a dental visit in the last 12 months?: Yes Did you have a dental problem in the last 6 months where you did not have access to dental care?: No Was dental information given to patient?: Patient has dentist HPI 3mth f/u HPI Details hyperlip and hypothyr on rx; doing well PFSH Medical History Post-menopausal Hypertension History of high cholesterol Thyroid disease Surgical History History of colonoscopy H/O stapedectomy Hx of tubal ligation Hx of tonsillectomy Family History Mother Dementia GERD (gastroesophageal reflux disease) Mental health disorder History of breast cancer Father No problems noted. Social History Housing: House Alcohol intake: current Alcohol intake frequency: holidays/special occasions only Patient Tobacco Use Status: Never used Tobacco e-Cigarette/Vaping Use: Never Used Second Hand Smoke Exposure: Yes service: No Current occupational status: retired Current occupational exposures/hazards: No Cognitive needs: No Hearing needs: Yes Vision needs: Yes Questionnaire PHQ-9 Over the last 2 weeks, how often have you been bothered by any of the following problems? 1. Little interest or pleasure in doing things: not at all 2. Feeling down, depressed, or hopeless: not at all 3. Trouble falling or staying asleep, or sleeping too much: not at all 4. Feeling tired or having little energy: not at all 5. Poor appetite or overeating: not at all 6. Feeling bad about yourself - or that you are a failure or have let yourself or your family down: not at all 7. Trouble concentrating on things, such as reading the newspaper or watching television: not at all 8. Moving or speaking so slowly that other people could have noticed. Or the opposite - being so fidgety or restless that you have been moving around a lot more than usual: not at all 9. Thoughts that you would be better off or of hurting yourself in some way: not at all Total score: 0 Depression Screening Interpretation: Negative Depression Screening Done: Yes 36186 - PHQ-9 Billing: Yes Source: Developed by Drs. Aubrey Sunshine, Mary Grace Wiseman, Breezy Edmond and colleagues, with an educational nithin from [employer]. Thrive Questionnaire Date Thrive assessed: 11/25/23 I am a: Patient What is your living situation today?: I have a steady place to live Within the past 12 months, did the food you bought not last and you didn't have the money to get more?: Never true Within the past 12 months, did you worry whether your food would run out before you got money to buy more?: Never true Do you have trouble paying for medicines?: No Do you have trouble getting transportation to medical appointments?: No Do you have trouble paying your heating and electricity bill?: No Do you have trouble taking care of your child, family member or friend?: No Do you have trouble with day-to-day activities such as bathing, preparing meals, shopping, managing finances, etc.?: No Are you currently unemployed and looking for a job?: No Are you interested in more education?: No Please select the resources that you would like help with: None Currently or been in a relationship where the following occur: no concerns reported THRIVE Score: 0 AUDIT C Alcohol Use Questionnaire (AUDIT-C) 1. How often do you have a drink containing alcohol?: Never 3. How often do you have six or more drinks on one occasion?: Never Total Score: 0 Score Reviewed/Action Taken: Yes RAMSEY-7 AMB Questionnaire RAMSEY-7 Date RAMSEY - 7 assessed: 11/25/23 Feeling nervous, anxious, or on edge: 0 = Not at all Not being able to stop or control worryin = Not at all Worrying too much about different things: 0 = Not at all Trouble relaxin = Not at all Being so restless that it is hard to sit still: 0 = Not at all Becoming easily annoyed or irritable: 0 = Not at all Feeling afraid as if something awful might happen: 0 = Not at all Total RAMSEY-7 score (0-4 normal; 5-9 mild; 10-14 moderate; 15-21 severe): 0 Source: Developed by Drs. Aubrey Sunshine, Mary Grace Wiseman, Breezy Edmond and colleagues, with an educational nithin from [employer]. RAMSEY-7 Assessment Billing RAMSEY-7 Assessment Tool: RAMSEY-7 Assessment 95549 Review of Systems Const Denies chills, Denies headache(s) and Denies weight loss ENT Denies headache(s) Card Denies chest pain, Denies syncope, Denies irregular heart rhythm and Denies dyspnea Resp Denies chest congestion, Denies cough and Denies dyspnea GI Denies abdominal pain, Denies change in stool character, Denies nausea and Denies vomiting Musc Denies deformity and Denies joint swelling Neuro Denies syncope and Denies headache(s) Physical exam (Primary Care) Vital Signs: Last Vital Signs Pulse 61 11/25/23 09:09 BP 136/60 11/25/23 09:09 Pulse Ox 98 11/25/23 09:09 Oxygen Delivery Method Room Air 11/25/23 09:09 BMI result Body Mass Index 23.4 Tobacco/Smoking Status: Tobacco use Status Tobacco use date assessed 11/25/23 11/25/23 09:11 Patient Tobacco Use Status Never used Tobacco 11/25/23 09:11 e-Cigarette/Vaping Use Never Used 11/25/23 09:11 PHQ-9: PHQ-9 Score PHQ-9: Total score 0 11/25/23 09:20 Depression Screening Interpretation: Negative Thrive Assessment: Date of Thrive Assessment Date Thrive assessed 11/25/23 11/25/23 09:11 Currently or been in a relationship where the following occur: no concerns reported Const General: cooperative, comfortable, no acute distress and alert Neck Neck: Yes no lymphadenopathy Thyroid: Thyroid normal Resp Effort & Inspection: normal respiratory effort Auscultation: clear to auscultation bilaterally Percussion: percussion normal Cardio Jugular venous distension: no JVD Palpation: normal PMI Rate: regular rate Rhythm: regular rhythm Heart sounds: S1 normal heart sound present and S2 normal heart sound present GI Inspection: Yes normal to inspection Palpation (GI): No hepatosplenomegaly present Skin General skin exam: no rashes or lesions noted Extrem General: Yes no clubbing, cyanosis or edema Assessment and Plan Assessment & Plan (1) Hypothyroid: Code(s): E03.9 - Hypothyroidism, unspecified Plan: stable; same rx (2) Hypertension: Code(s): I10 - Essential (primary) hypertension Plan: stable; smae rx Orders: Orders Lipid Panel Today Z13.220 - Encounter for screening for lipoid disorders Thyroid Stimulating Hormone Today Z13.29 - Encounter for screening for other suspected endocrine disorder Complete Blood Count Auto Diff Today Z13.0 - Encounter for screening for diseases of the blood and blood-forming organs and certain disorders involving the immune mechanism Comprehensive [place]. Panel Fast Today Z13.9 - Encounter for screening, unspecified Coding Level of Care Code Est Pt Level 3 (55232) Diagnoses Hypothyroid E03.9 Hypertension I10 Additional Codes RAMSEY-7 Assessment Billing - RAMSEY-7 Assessment Tool: RAMSEY-7 Assessment 76178 ([id number])
== END 2023-11-25 09:39 | disposition home or self-care (01) ==
PROVIDERS: PCP Internal Medicine; Visit Provider Internal Medicine
DX: E03.9 Hypothyroidism, unspecified (principal); I10 Essential (primary) hypertension
CPT/HCPCS: 99213

== ENCOUNTER 2024-05-26 06:06 | Outpatient (REF) | payer MEDICARE, BC, SELFPAY ==
[2024-05-26 10:03] LABS: MANUAL DIFF FLAG NO
[2024-05-26 10:13] LABS: Basophils Absolute Auto 0.1 X10*3/uL (0.0-0.2); Basophils Percent Auto 0.6 % (0-2); Eosinophils Absolute Auto 0.3 X10*3/uL (0.0-0.4); Eosinophils Percent Auto 3.6 % (0-4); Hematocrit 39.3 % (37.0-47.0); Hemoglobin 13.4 g/dl (12.0-16.0); Imm Gran Abs Auto 0.02 X10*3/uL (0.00-0.03); Imm Gran Pct Auto 0.2 % (0.0-0.4); Lymphocytes Absolute Auto 2.3 X10*3/uL (1.2-4.9); Lymphocytes Percent Auto 28.1 % (20-40); Mean Corpuscular HGB Conc 34.1 g/dl (31.0-35.0); Mean Corpuscular Hemoglobin 32.3 pg (27.0-33.0); Mean Corpuscular Volume 94.7 fL (80.0-98.0); Mean Platelet Volume 11.1 fL (9.4-12.3); Monocytes Absolute Auto 0.7 X10*3/uL (0.1-1.2); Monocytes Percent Auto 8.4 % (2-11); Neutrophils Absolute Auto 4.7 x10*3/uL (2.0-8.3); Neutrophils Percent Auto 59.1 % (45-73); Platelet Count 244 X10*3/uL (160-400); Red Blood Count 4.15 X10*6/uL (4.20-5.50); Red Cell Distribution Width 12.4 % (11.0-16.0)
[2024-05-26 10:43] LABS: Alanine Aminotransferase 19 U/L (0-31); Albumin Level 4.1 g/dL (3.5-5.0); Alkaline Phosphatase 71 U/L (39-117); Anion Gap 11 (12-20); Aspartate Amino Transferase 20 U/L (5-31); Bilirubin Total 0.5 mg/dL (0.0-1.0); Blood Urea Nitrogen 17 mg/dL (9-16); Calcium 9.2 mg/dL (8.4-10.2); Carbon Dioxide 29 mmol/L (22-29); Chloride 107 mmol/L (96-108); Cholesterol 153 mg/dL (<200); Estimated Glomerular Filt Rate > 60; Glucose Fasting 87 mg/dL (60-99); HDL Cholesterol 63 mg/dL (>40); LDL Cholesterol Calculated 77 mg/dL (<100); Potassium 3.7 mmol/L (3.3-5.1); Sodium 143 mmol/L (135-145); Total Protein 6.6 g/dL (6.5-8.0); Triglycerides 67 mg/dL (<150)
[2024-05-26 10:46] LABS: Thyroid Stimulating Hormone 4.77 uIU/mL (0.32-4.0)
== END 2024-05-26 06:07 | disposition home or self-care (01) ==
LOC: HO.HMGCLDS 06:06
PROVIDERS: PCP Internal Medicine; Visit Provider Internal Medicine
DX: Z13.220 Encounter for screening for lipoid disorders (principal); Z13.29 Encounter for screening for other suspected endocrine disorder; Z13.0 Encounter for screening for diseases of the blood and blood-forming organs and certain disorders involving the immune mechanism; Z13.9 Encounter for screening, unspecified
CPT/HCPCS: 36415; 80053; 80061; 84443; 85025

== ENCOUNTER 2024-06-01 09:15 | Outpatient (AMB) | payer MEDICARE, BC, SELFPAY ==
[2024-06-01 09:16] VITALS: BP 144/70; PULSE 65; O2SAT 96; BMI 23.2
--- NOTE | 2024-06-01 09:16 | MHC.PC.OV ---
Vital Signs 06/01/24 09:16 Height 5 ft Weight 119 lb BMI 23.2 BP 144/70 H Blood Pressure Location Lt brachial Position Sitting Pulse 65 Pulse Source Pulse Oximeter Pulse Oximetry (%) 96 Oxygen Delivery Method Room Air Intake Visit Reasons: 6mof\u Date Night Caregiver Required: No Accompanied by: Self / Same As Patient Allergies bee venom protein (honey bee) Allergy (Severe, Verified 06/01/24 09:17) Anaphylaxis Medication List - Last Reconciled 06/01/24 by Carlos Spivey MD atorvastatin 20 mg PO DAILY levothyroxine 112 mcg PO DAILY Tobacco use date assessed: 11/25/23 Fall risk assessment: No Falls in past year Last assessed Fall Risk: 06/01/24 Dental Screening Dental Screen Date: 11/25/23 HPI 6mof\u HPI Details Hyperlipidemia and hypothyroidism on rx; doing well; compliant [facility] Medical History Post-menopausal Hypertension History of high cholesterol Thyroid disease Surgical History History of colonoscopy H/O stapedectomy Hx of tubal ligation Hx of tonsillectomy Family History Mother Dementia GERD (gastroesophageal reflux disease) Mental health disorder History of breast cancer Father No problems noted. Social History Housing: House Alcohol intake: current Alcohol intake frequency: holidays/special occasions only Patient Tobacco Use Status: Never used Tobacco Tobacco use type: Cigarette e-Cigarette/Vaping Use: Never Used Second Hand Smoke Exposure: Yes service: No Current occupational status: retired Current occupational exposures/hazards: No Cognitive needs: No Hearing needs: Yes Vision needs: Yes Questionnaire Thrive Questionnaire Date Thrive assessed: 11/25/23 Are you currently unemployed and looking for a job?: No RAMSEY-7 AMB Questionnaire RAMSEY-7 Date RAMSEY - 7 assessed: 11/25/23 Source: Developed by Drs. Aubrey Sunshine, Mary Grace Wiseman, Breezy Edmond and colleagues, with an educational nithin from [employer]. Review of Systems Const Denies chills, Denies headache(s) and Denies weight loss ENT Denies headache(s) Card Denies chest pain, Denies syncope, Denies irregular heart rhythm and Denies dyspnea Resp Denies chest congestion, Denies cough and Denies dyspnea GI Denies abdominal pain, Denies change in stool character, Denies nausea and Denies vomiting Musc Denies deformity and Denies joint swelling Neuro Denies syncope and Denies headache(s) Physical exam (Primary Care) Vital Signs: Last Vital Signs Pulse 65 06/01/24 09:16 BP 144/70 H 06/01/24 09:16 Pulse Ox 96 06/01/24 09:16 Oxygen Delivery Method Room Air 06/01/24 09:16 BMI result Body Mass Index 23.2 Tobacco/Smoking Status: Tobacco use Status Tobacco use date assessed 11/25/23 06/01/24 09:20 Patient Tobacco Use Status Never used Tobacco 06/01/24 09:20 Tobacco use type Cigarette 06/01/24 09:20 e-Cigarette/Vaping Use Never Used 06/01/24 09:20 Thrive Assessment: Date of Thrive Assessment Date Thrive assessed 11/25/23 06/01/24 09:20 Const General: cooperative, comfortable, no acute distress and alert Neck Neck: Yes no lymphadenopathy Thyroid: Thyroid normal Resp Effort & Inspection: normal respiratory effort Auscultation: clear to auscultation bilaterally Percussion: percussion normal Cardio Jugular venous distension: no JVD Palpation: normal PMI Rate: regular rate Rhythm: regular rhythm Heart sounds: S1 normal heart sound present and S2 normal heart sound present GI Inspection: Yes normal to inspection Palpation (GI): No hepatosplenomegaly present Skin General skin exam: no rashes or lesions noted Extrem General: Yes no clubbing, cyanosis or edema Coding Level of Care Code Est Pt Level 3 (82698) Diagnoses Hyperlipidemia E78.5 Hypothyroid E03.9 Assessment & Plan Assessment & Plan (1) Hyperlipidemia: Code(s): E78.5 - Hyperlipidemia, unspecified Category: Medical Plan: stable; same rx (2) Hypothyroid: Code(s): E03.9 - Hypothyroidism, unspecified Category: Medical Plan: stable; do labs; TSH borderline Orders: Orders Lipid Panel Today Z13.220 - Encounter for screening for lipoid disorders Thyroid Stimulating Hormone Today Z13.29 - Encounter for screening for other suspected endocrine disorder
== END 2024-06-01 09:31 | disposition home or self-care (01) ==
PROVIDERS: PCP Internal Medicine; Visit Provider Internal Medicine
DX: E78.5 Hyperlipidemia, unspecified (principal); E03.9 Hypothyroidism, unspecified

== ENCOUNTER → 2024-06-01 09:15 | Outpatient (BNVA) | payer MEDICARE, BC, SELFPAY | PROVIDERS: PCP Internal Medicine; Visit Provider Internal Medicine | DX: E78.5 Hyperlipidemia, unspecified (principal); E03.9 Hypothyroidism, unspecified | CPT/HCPCS: 99212 ==

== ENCOUNTER 2024-07-27 10:38 | Outpatient (REF) | payer MEDICARE, BC, SELFPAY | END 2024-07-27 10:39 | disposition home or self-care (01) | LOC: HO.SH 10:38 | PROVIDERS: Visit Provider Internal Medicine | DX: Z01.118 Encounter for examination of ears and hearing with other abnormal findings (principal); H90.6 Mixed conductive and sensorineural hearing loss, bilateral | CPT/HCPCS: 92557 ==

== ENCOUNTER 2024-07-27 12:25 | Outpatient (REF) | payer SELFPAY | END 2024-07-27 12:26 | disposition home or self-care (01) | LOC: HO.HAP 12:25 | PROVIDERS: Visit Provider Internal Medicine | DX: Z46.1 Encounter for fitting and adjustment of hearing aid (principal); H90.6 Mixed conductive and sensorineural hearing loss, bilateral | CPT/HCPCS: 92593 ==

== ENCOUNTER 2024-09-02 08:47 | Outpatient (REF) | payer MEDICARE, BC, SELFPAY | END 2024-09-02 08:48 | disposition home or self-care (01) | LOC: HO.MAMMO 08:47 | PROVIDERS: PCP Internal Medicine; Visit Provider Internal Medicine | DX: Z12.31 Encounter for screening mammogram for malignant neoplasm of breast (principal) | CPT/HCPCS: 77063; 77067 ==

== ENCOUNTER 2024-10-23 06:30 | Outpatient (REF) | payer MEDICARE, BC, SELFPAY ==
[2024-10-23 10:43] LABS: Cholesterol 136 mg/dL (<200); HDL Cholesterol 54 mg/dL (>40); LDL Cholesterol Calculated 67 mg/dL (<100); Triglycerides 78 mg/dL (<150)
[2024-10-23 11:01] LABS: Thyroid Stimulating Hormone 3.18 uIU/mL (0.32-4.0)
== END 2024-10-23 06:31 | disposition home or self-care (01) ==
LOC: HO.HMGCLDS 06:30
PROVIDERS: PCP Internal Medicine; Visit Provider Internal Medicine
DX: Z13.220 Encounter for screening for lipoid disorders (principal); Z13.29 Encounter for screening for other suspected endocrine disorder; Z13.6 Encounter for screening for cardiovascular disorders
CPT/HCPCS: 36415; 80061; 84443

== ENCOUNTER 2024-10-30 09:11 | Outpatient (AMB) | payer MEDICARE, BC, SELFPAY ==
--- NOTE | 2024-10-30 09:13 | MHC.PC.OV ---
Vital Signs 10/30/24 09:16 Height 5 ft Weight 119 lb BMI 23.2 BP 120/62 Blood Pressure Location Lt brachial Position Sitting Pulse 69 Pulse Source Pulse Oximeter Temp 97.1 F Temp Source Temporal Artery Scan Pulse Oximetry (%) 97 Oxygen Delivery Method Room Air Intake Visit Reasons: 6mth f/u Intake Note: Patient is here to follow up on HLD, Hypothyroid, HTN. 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 per policy Accompanied by: Self / Same As Patient Allergies bee venom protein (honey bee) Allergy (Severe, Verified 10/30/24 09:15) Anaphylaxis Medication List - Last Reconciled 10/30/24 by Carlos Spivey MD atorvastatin 20 mg PO DAILY levothyroxine 112 mcg PO DAILY Tobacco use date assessed: 10/30/24 Fall risk assessment: No Falls in past year Last assessed Fall Risk: 10/30/24 Dental Screening Dental Screen Date: 10/30/24 Did you have a dental visit in the last 12 months?: Yes Did you have a dental problem in the last 6 months where you did not have access to dental care?: No Was dental information given to patient?: Patient has dentist HPI 6mth f/u HPI Details hyperlipidemia and hypothyroidism on rx; doing well; compliant [facility] Medical History Post-menopausal Hypertension History of high cholesterol Thyroid disease Surgical History History of colonoscopy H/O stapedectomy Hx of tubal ligation Hx of tonsillectomy Family History Mother Dementia GERD (gastroesophageal reflux disease) Mental health disorder History of breast cancer Father No problems noted. Social History Housing: House Alcohol intake: current Alcohol intake frequency: holidays/special occasions only Patient Tobacco Use Status: Never used Tobacco Tobacco use type: Cigarette e-Cigarette/Vaping Use: Never Used Second Hand Smoke Exposure: Yes service: No Current occupational status: retired Current occupational exposures/hazards: No Cognitive needs: No Hearing needs: Yes Vision needs: Yes (Glasses) Questionnaire PHQ-9 Over the last 2 weeks, how often have you been bothered by any of the following problems? 1. Little interest or pleasure in doing things: not at all 2. Feeling down, depressed, or hopeless: not at all 3. Trouble falling or staying asleep, or sleeping too much: not at all 4. Feeling tired or having little energy: not at all 5. Poor appetite or overeating: not at all 6. Feeling bad about yourself - or that you are a failure or have let yourself or your family down: not at all 7. Trouble concentrating on things, such as reading the newspaper or watching television: not at all 8. Moving or speaking so slowly that other people could have noticed. Or the opposite - being so fidgety or restless that you have been moving around a lot more than usual: not at all 9. Thoughts that you would be better off or of hurting yourself in some way: not at all Total score: 0 Depression Screening Interpretation: Negative Depression Screening Done: Yes Source: Developed by Drs. Aubrey Sunshine, Mary Grace Wiseman, Breezy Edmond and colleagues, with an educational nithin from [employer]. Thrive Questionnaire Date Thrive assessed: 10/30/24 I am a: Patient What is your living situation today?: I have a steady place to live Within the past 12 months, did the food you bought not last and you didn't have the money to get more?: Never true Within the past 12 months, did you worry whether your food would run out before you got money to buy more?: Never true Do you have trouble paying for medicines?: No Do you have trouble getting transportation to medical appointments?: No Do you have trouble paying your heating and electricity bill?: No Do you have trouble taking care of your child, family member or friend?: No Do you have trouble with day-to-day activities such as bathing, preparing meals, shopping, managing finances, etc.?: No Are you currently unemployed and looking for a job?: No Are you interested in more education?: No Please select the resources that you would like help with: None Currently or been in a relationship where the following occur: No concerns reported THRIVE Score: 0 AUDIT C Alcohol Use Questionnaire (AUDIT-C) 1. How often do you have a drink containing alcohol?: Never Total Score: 0 RAMSEY-7 AMB Questionnaire RAMSEY-7 Date RAMSEY - 7 assessed: 10/30/24 Feeling nervous, anxious, or on edge: 0 = Not at all Not being able to stop or control worryin = Not at all Worrying too much about different things: 0 = Not at all Trouble relaxin = Not at all Being so restless that it is hard to sit still: 0 = Not at all Becoming easily annoyed or irritable: 0 = Not at all Feeling afraid as if something awful might happen: 0 = Not at all Total RAMSEY-7 score (0-4 normal; 5-9 mild; 10-14 moderate; 15-21 severe): 0 Source: Developed by Drs. Aubrey Sunshine, Mary Grace Wiseman, Breezy Edmond and colleagues, with an educational nithin from [employer]. Review of Systems Const Denies chills, Denies headache(s) and Denies weight loss ENT Denies headache(s) Card Denies chest pain, Denies syncope, Denies irregular heart rhythm and Denies dyspnea Resp Denies chest congestion, Denies cough and Denies dyspnea GI Denies abdominal pain, Denies change in stool character, Denies nausea and Denies vomiting Musc Denies deformity and Denies joint swelling Neuro Denies syncope and Denies headache(s) Physical exam (Primary Care) Vital Signs: Last Vital Signs Temp 97.1 F 10/30/24 09:16 Pulse 69 10/30/24 09:16 BP 120/62 10/30/24 09:16 Pulse Ox 97 10/30/24 09:16 Oxygen Delivery Method Room Air 10/30/24 09:16 BMI result Body Mass Index 23.2 Tobacco/Smoking Status: Tobacco use Status Tobacco use date assessed 10/30/24 10/30/24 09:21 Patient Tobacco Use Status Never used Tobacco 10/30/24 09:21 Tobacco use type Cigarette 10/30/24 09:21 e-Cigarette/Vaping Use Never Used 10/30/24 09:21 PHQ-9: PHQ-9 Score PHQ-9: Total score 0 10/30/24 09:21 Depression Screening Interpretation: Negative Thrive Assessment: Date of Thrive Assessment Date Thrive assessed 03/14/25 03/14/25 09:21 Currently or been in a relationship where the following occur: No concerns reported Const General: cooperative, comfortable, no acute distress and alert Neck Neck: Yes no lymphadenopathy Thyroid: Thyroid normal Resp Effort & Inspection: normal respiratory effort Auscultation: clear to auscultation bilaterally Percussion: percussion normal Cardio Jugular venous distension: no JVD Palpation: normal PMI Rate: regular rate Rhythm: regular rhythm Heart sounds: S1 normal heart sound present and S2 normal heart sound present GI Inspection: Yes normal to inspection Palpation (GI): No hepatosplenomegaly present Skin General skin exam: no rashes or lesions noted Extrem General: Yes no clubbing, cyanosis or edema Coding Level of Care Code Est Pt Level 3 (22578) Diagnoses Hypothyroid E03.9 Hypertension I10 Assessment & Plan Assessment & Plan (1) Hypothyroid: Code(s): E03.9 - Hypothyroidism, unspecified Category: Medical Plan: stable; same rx (2) Hypertension: Code(s): I10 - Essential (primary) hypertension Category: Medical Plan: stable; same rx
[2024-10-30 09:16] VITALS: BP 120/62; PULSE 69; TEMP 36.2; O2SAT 97; BMI 23.2
== END 2024-10-30 09:34 | disposition home or self-care (01) ==
LOC: HO.HMCH 09:12
PROVIDERS: PCP Internal Medicine; Visit Provider Internal Medicine
DX: E03.9 Hypothyroidism, unspecified (principal); I10 Essential (primary) hypertension

== ENCOUNTER → 2024-10-30 09:11 | Outpatient (BNVA) | payer MEDICARE, BC, SELFPAY | PROVIDERS: PCP Internal Medicine; Visit Provider Internal Medicine | DX: E03.9 Hypothyroidism, unspecified (principal); I10 Essential (primary) hypertension | CPT/HCPCS: 99212 ==

== ENCOUNTER 2025-03-10 15:58 | Outpatient (REF) | payer SELFPAY ==
--- OUTSIDE RECORDS SUMMARY | 2025-03-10 16:01 | XMS_ITS | Patient Health Record ---
Author Organization [facility] Address [address] [place] [id number] Care Team Providers Care Parking Line Painter Name Role Phone Silvia Mcdaniel Primary Care Provider Aubrey Harper Unavailable [phone] Allergies Allergen (clinical drug ingredient) Drug/Non Drug Allergy documented on EMR Reaction Allergy Type Onset Date Status beestings (uncoded) Unknown Allergy Active Reason For Referral No Information Medications Medication SIG (Take, Route, Frequency, Duration) Notes Start Date End Date Status EpiPen prn bee stings Activ e Viactiv 500-500-40 MG-UNT-MCG 1 tablet with a meal Orally Once a day Active Levothyroxine Sodium 125 MCG Orally Active Multivitamin Adult - Orally Active Atorvastatin Calcium 20 MG Orally Active Social History Alcohol Screen Question Answer Notes Did you have a drink contain ing alcohol in the past year? Yes How often did you have a dri nk containing alcohol in the past year? Monthly or less (1 point) How many drinks did you have on a typical day when you were drinking in the past year? 1 or 2 drinks (0 point) How often did you have 6 or more drinks on one occasion in the past year? Never (0 point) Points 1 Interpretation Negative Section Notes: Nonsmoker; no sig alcohol Nonsmoker; no sig alcohol Problems Problem Type SNOMED Code ICD Code Onset Dates Problem Status W/U Status Risk Notes Problem [id number] Encounter for screening for malignant neoplasm of colon (Z12.11) Active confirmed Problem [id number] Preprocedural examination (Z01.818) Active confirmed Plan Of Treatment Future Test Test Name Order Date COLONOSCOPY 02/08/2017 Insurance Providers Payer Name Payer Address Payer Phone Subscriber Number Group Number Insured Name Patient Relationship to Insured Coverage Start Date Coverage End Date MED[place]ARE [place] [address] [place] [address] [id number] EMEKA SANDERSON Self - patient is the insured [facility] [address] [place], [place] [id number] EMEKA SANDERSON Self - patient is the insured Medical (General) History Medical History History ICD Code Denies [place],DM,CVA,Lung disease,renal dise ase GERD-uses TUMS prn Hypothyroidism Hyperlipidemia Colonoscopy in 10/[address] Alegre-- no adenomas U/S in 2014 revealed some small gallblad isabella polyps and small hepatic cysts Surgical History Surgery Date(Month/Year) tonsillectomy tubal ligation stapedectomy
--- NOTE | 2025-03-11 08:23 | MHC.AU.CER ---
Cerumen Removal- Binaural Date of Visit: 03/10/25 Rosa M is scheduled for cerumen removal. She reports she has historically had cerumen removal done by Dr. Velez but he is now retired. Reports considering new hearing aids, has upcoming evaluation scheduled, wants to have ears cleaned prior to evaluation. Reports feeling like her right hearing aid is working at 50%. Otoscopy reveals visually occluding cerumen Au. Mederos reports history of stapedectomy Ad. Recommended wax removal by physician due to surgical history. Discussed other ENTs in the region for Rosa M to contact due to Dr. Velez's residential. Rosa M noted use of wax md in the past, reports she will try drops between now and her evaluation while trying to get in somewhere else for wax removal. Noted tubes were hardened on Rosa M's hearing aids and recommended hearing aid maintenance today. Rosa M reported she would rather wait and do the maintenance during her hearing test next week. Recommendations: Recommendations: Follow-up with ENT for cerumen removal Diagnosis Code(s): Primary Diagnosis: H90.6 Mixed Hearing Loss, Bilateral Signature: Provider: Angélica Doan, [facility]
== END 2025-03-10 15:59 | disposition home or self-care (01) ==
LOC: HO.HAP 15:58
PROVIDERS: Visit Provider Physician Assistant
DX: Z13.89 Encounter for screening for other disorder (principal)

== ENCOUNTER 2025-03-16 12:45 | Outpatient (REF) | payer MEDICARE, BC, SELFPAY ==
--- OUTSIDE RECORDS SUMMARY | 2025-03-16 13:28 | XMS_ITS | Patient Health Record ---
Author Organization [facility] Address [address] [place] [address] Care Team Providers Care Apparel Machinery Instructor Name Role Phone Silvia Mcdaniel Primary Care Provider Aubrey Harper Unavailable [phone] Allergies Allergen (clinical drug ingredient) Drug/Non Drug [...] Problem Status W/U Status Risk Notes Problem [id number] Encounter for screening for malignant neoplasm of colon (Z12.11) Active confirmed Problem [id number] Preprocedural examination (Z01.818) Active confirmed Plan Of Treatment Future Test Test Name Order Date COLONOSCOPY 02/08/2017 Insurance Providers Payer Name Payer Address Payer Phone Subscriber Number Group Number Insured Name Patient Relationship to Insured Coverage Start Date Coverage End Date [place] [address] [place] [address] [id number] EMEKA SANDERSON Self - patient is the insured [facility] [address] [place], [place] [id number] EMEKA SANDERSON Self - patient is the insured Medical (General) History Medical History History ICD Code Denies ID,DM,CVA,Lung disease,renal dise ase GERD-uses TUMS prn Hypothyroidism Hyperlipidemia Colonoscopy in 10/[address] Alegre-- no adenomas U/S in 2014 revealed some small gallblad isabella polyps and small hepatic cysts Surgical History Surgery Date(Month/Year) tonsillectomy tubal ligation stapedectomy
== END 2025-03-16 12:46 | disposition home or self-care (01) ==
LOC: HO.SH 12:45
PROVIDERS: Visit Provider Physician Assistant
DX: Z01.118 Encounter for examination of ears and hearing with other abnormal findings (principal); H90.6 Mixed conductive and sensorineural hearing loss, bilateral
CPT/HCPCS: 92557; 92567

== ENCOUNTER 2025-03-16 13:43 | Outpatient (REF) | payer SELFPAY | END 2025-03-16 13:44 | disposition home or self-care (01) | LOC: HO.HAP 13:43 | PROVIDERS: Visit Provider Physician Assistant | DX: Z46.1 Encounter for fitting and adjustment of hearing aid (principal); H90.6 Mixed conductive and sensorineural hearing loss, bilateral | CPT/HCPCS: 92593 ==

== ENCOUNTER 2025-04-29 06:34 | Outpatient (REF) | payer MEDICARE, BC, SELFPAY ==
--- OUTSIDE RECORDS SUMMARY | 2025-04-29 06:37 | XMS_ITS | Patient Health Record ---
Author Organization [facility] Address [address] [place] [phone] Care Team Providers Care Bridge Instructor Name Role Phone Silvia Mcdaniel Primary Care Provider Aubrey Harper Unavailable [phone] Allergies Allergen (clinical drug ingredient) Drug/Non Drug [...] Problem Status W/U Status Risk Notes Problem [id number] Encounter for screening for malignant neoplasm of colon (Z12.11) Active confirmed Problem [id number] Preprocedural examination (Z01.818) Active confirmed Plan Of Treatment Future Test Test Name Order Date COLONOSCOPY 02/08/2017 Insurance Providers Payer Name Payer Address Payer Phone Subscriber Number Group Number Insured Name Patient Relationship to Insured Coverage Start Date Coverage End Date [place] [address] [place] [address] [phone] [id number] EMEKA SANDERSON Self - patient is the insured [facility] [address] [place], [place] [id number] EMEKA SANDERSON Self - patient is the insured Medical (General) History Medical History History ICD Code Denies [place],DM,CVA,Lung disease,renal dise ase GERD-uses TUMS prn Hypothyroidism Hyperlipidemia Colonoscopy in 10/[address] Alegre-- no adenomas U/S in 2014 revealed some small gallblad isabella polyps and small hepatic cysts Surgical History Surgery Date(Month/Year) tonsillectomy tubal ligation stapedectomy
[2025-04-29 10:22] LABS: Hematocrit 37.9 % (37.0-47.0); Hemoglobin 12.8 g/dl (12.0-16.0); Mean Corpuscular HGB Conc 33.8 g/dl (31.0-35.0); Mean Corpuscular Hemoglobin 31.7 pg (27.0-33.0); Mean Corpuscular Volume 93.8 fL (80.0-98.0); NRBC Abs Auto 0.000 X10*3/uL (0.0-0.012); NRBC Pct Auto 0.0 /100WBC (0.0-0.2); Platelet Count 229 X10*3/uL (160-400); Red Blood Count 4.04 X10*6/uL (4.20-5.50); White Blood Count 7.6 X10*3/uL (4.8-10.8)
[2025-04-29 11:39] LABS: Alanine Aminotransferase 19 U/L (0-31); Albumin Level 4.2 g/dL (3.5-5.0); Alkaline Phosphatase 71 U/L (39-117); Anion Gap 12 (12-20); Aspartate Amino Transferase 26 U/L (5-31); Blood Urea Nitrogen 20 mg/dL (9-16); Calcium 9.1 mg/dL (8.4-10.2); Carbon Dioxide 26 mmol/L (22-29); Chloride 109 mmol/L (96-108); Cholesterol 145 mg/dL (<200); Estimated Glomerular Filt Rate > 60; HDL Cholesterol 57 mg/dL (>40); Potassium 3.6 mmol/L (3.3-5.1); Sodium 143 mmol/L (135-145); Total Protein 6.6 g/dL (6.5-8.0); Triglycerides 88 mg/dL (<150)
== END 2025-04-29 06:35 | disposition home or self-care (01) ==
LOC: HO.HMGCLDS 06:34
PROVIDERS: PCP Physician Assistant; Visit Provider Physician Assistant
DX: E78.5 Hyperlipidemia, unspecified (principal); E03.9 Hypothyroidism, unspecified
CPT/HCPCS: 36415; 80053; 80061; 84443; 85027

== ENCOUNTER 2025-05-03 08:42 | Outpatient (AMB) | payer MEDICARE, BC, SELFPAY ==
--- NOTE | 2025-05-03 08:48 | A.OFFPC_ITS ---
Vital Signs 05/03/25 08:51 Height 5 ft Weight 118 lb BMI 23.0 BP 132/66 Blood Pressure Location Lt brachial Position Sitting Pulse 63 Pulse Source Pulse Oximeter Temp 97.3 F Temp Source Temporal Artery Scan Pulse Oximetry (%) 98 Oxygen Delivery Method Room Air Intake Visit Reasons: 6 month f/u Intake Note: Patient is here to follow up on HTN, Hypothyroid, HLD. Delivery Coordinator Required: No Filtering Machine Tender Helper: Not Required per policy Accompanied by: Self / Same As Patient Allergies bee venom protein (honey bee) Allergy (Severe, Verified 05/03/25 08:51) Anaphylaxis Tobacco use date assessed: 05/03/25 Fall risk assessment: No Falls in past year Last assessed Fall Risk: 05/03/25 Dental Screening Dental Screen Date: 10/30/24 HPI 6 month f/u HPI Details Patient is a 74-year-old female here today for a transfer of care visit. Previous PCP was Dr. Spivey. Patient has a past medical history significant for hypertension, hypothyroidism and hyperlipidemia. . Concern--> She reports experiencing stiffness and locking in her fingers, particularly after gardening and embroidery, which she attributes to arthritis or trigger finger. The symptoms are not severely painful, rated at a 2 out of 10, and she manages them with exercises and svek-kba-cudgosl creams. The patient also reports hearing loss and uses hearing aids in both ears. She has been advised to clear earwax before obtaining new hearing aids, but has faced difficulty finding an ENT specialist for this purpose. She has a history of ear surgery, specifically a stapedectomy performed around 2002, which complicates earwax removal. Hypothyroidism: Most recent TSH stable. She continues on 112 mcg of levothyroxine. .. Hyperlipidemia: Patient continues on moderate statin dose atorvastatin 20 mg without any side effect. Most recent lipid panel showing excellent control over total cholesterol and LDL Laboratory Tests 04/29/25 07:01 RBC 4.04 L Hgb 12.8 Creatinine 0.57 Cholesterol 145 LDL Cholesterol, C alc 71 TSH 3.08 [facility] Medical History Post-menopausal Hypertension History of high cholesterol Thyroid disease Surgical History History of colonoscopy H/O stapedectomy Hx of tubal ligation Hx of tonsillectomy Family History Mother Dementia GERD (gastroesophageal reflux disease) Mental health disorder History of breast cancer Father No problems noted. Social History Housing: House Alcohol intake: current Alcohol intake frequency: holidays/special occasions only Patient Tobacco Use Status: Never used Tobacco Tobacco use type: Cigarette e-Cigarette/Vaping Use: Never Used Second Hand Smoke Exposure: Yes service: No Current occupational status: retired Current occupational exposures/hazards: No Cognitive needs: No Hearing needs: Yes Vision needs: Yes (Glasses) Questionnaire Thrive Questionnaire Date Thrive assessed: 10/30/24 RAMSEY-7 AMB Questionnaire RAMSEY-7 Date RAMSEY - 7 assessed: 10/30/24 Source: Developed by Drs. Aubrey Sunshine, Mary Grace Wiseman, Breezy Edmond and colleagues, with an educational nithin from [employer]. Review of Systems Const Denies headache(s) Eyes Denies loss of vision ENT Denies vertigo, Denies dizziness, Denies headache(s) and Denies sore throat Card Denies chest pain, Denies leg edema and Denies lightheadedness Resp Denies cough, Denies hemoptysis and Denies wheezing GI Denies abdominal pain, Denies melena, Denies constipation, Denies diarrhea and Denies vomiting Denies urinary frequency, Denies dysuria and Denies urinary urgency Musc Denies arthralgias, Denies joint swelling, Denies numbness and Denies tingling Neuro Denies Abnormal speech present, Denies behavioral changes, Denies vertigo, Denies dizziness, Denies headache(s), Denies loss of vision, Denies memory loss, Denies numbness and Denies tingling Psych Denies anxiety, Denies behavioral changes, Denies depression, Denies memory loss and Denies panic attacks Sherwin/Lymph Denies easy bleeding and Denies easy bruising Aller/Immun Denies wheezing Physical exam (Primary Care) Vital Signs: Last Vital Signs Temp 97.3 F 05/03/25 08:51 Pulse 63 05/03/25 08:51 BP 132/66 05/03/25 08:51 Pulse Ox 98 05/03/25 08:51 Oxygen Delivery Method Room Air 05/03/25 08:51 BMI result Body Mass Index 23.0 Tobacco/Smoking Status: Tobacco use Status Tobacco use date assessed 05/03/25 05/03/25 08:52 Patient Tobacco Use Status Never used Tobacco 05/03/25 08:52 Tobacco use type Cigarette 05/03/25 08:52 e-Cigarette/Vaping Use Never Used 05/03/25 08:52 Thrive Assessment: Date of Thrive Assessment Date Thrive assessed 10/30/24 05/03/25 08:52 Const General: healthy appearing, no acute distress, alert and awake Nutritional Appearance: well nourished Orientation/consciousness: oriented to person, oriented to place and oriented to time HENMT Ears: TM's normal bilaterally General nose exam: Normal nasal mucous membranes and turbinates present Eyes Conjunctivae: conjunctivae normal Sclerae: sclerae normal Pupils: Equal, round and reactive pupils present Neck Neck: Yes no lymphadenopathy and Yes no JVD Thyroid: Thyroid normal Carotids: no bruits Resp Effort & Inspection: normal respiratory effort and not tachypneic Auscultation: no crackles, no rales, no rhonchi and no wheezes Cardio Rate: regular rate Rhythm: regular rhythm Heart sounds: no murmurs and normal S1 and S2 GI Palpation (GI): Soft to palpation, nontender, no hepatomegaly and no splenomegaly Auscultation: normal bowel sounds Skin General skin exam: no rashes or lesions noted and dry skin Neuro General: oriented to person, oriented to place and oriented to time Cranial nerves: Yes Equal, round and reactive pupils present Speech: No Abnormal speech present Gait exam (Neuro): Normal gait present Motor exam (neuro): no tremor noted Extrem Right upper extremity: full ROM Left upper extremity: full ROM Right lower extremity: full ROM; no edema Left lower extremity: full ROM; no edema Psych Mental Status: mental status grossly normal Speech and movement: Normal speech and movement present Affect: normal affect Attitude: cooperative Thought process: Normal thought process present Office Procedures Cerumen Removal From which ear canal was the cerumen removed: bilateral Removal: irrigation and otoscope w/curette Notes: patient tolerated procedure well [id number] Irrigation/Lavage Coding Level of Care Code Est Pt Level 4 (10948) Diagnoses Pure hypertriglyceridemia E78.1 Hyperlipidemia type: pure hypertriglyceridemia Primary hypertension I10 Hypertension type: primary hypertension Sensorineural hearing loss (SNHL) of both ears H90.3 Laterality: bilateral 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 Will continue her current dose of statin therapy with goal LDL to remain below 130 (2) Hypertension: Code(s): I10 - Essential (primary) hypertension Category: Medical Qualifiers: Hypertension type: primary hypertension Qualified Code(s): I10 - Essential (primary) hypertension Plan: Patient's blood pressure acceptable today in office. She is not on any antihypertensive medication in his managing her blood pressure with diet and exe rcise. Goal blood pressures to remain below 140/90 (3) SNHL (sensorineural hearing loss): Code(s): H90.5 - Unspecified sensorineural hearing loss Category: Medical Qualifiers: Laterality: bilateral Qualified Code(s): H90.3 - Sensorineural hearing loss, bilateral Plan: Patient followed by the speech and hearing (4) Osteoarthritis of hand, right: Code(s): M19.041 - Primary osteoarthritis, right hand Category: Medical Qualifiers: Osteoarthritis type: primary Qualified Code(s): M19.041 - Primary osteoarthritis, right hand Plan: The patient is advised to consider occupational therapy to improve hand dexterity and strength. Cortisone injections may be considered if symptoms persist. (5) Impacted cerumen of left ear: Code(s): H61.22 - Impacted cerumen, left ear Category: Medical Plan: Removed a large amount cerumen from the left ear. Now will call back to the speech and hearing center to be evaluated for new hearing aids. Orders: Orders Complete Blood Count no Diff Today I10 - Essential (primary) hypertension TSH reflex Free T4 Today E03.9 - Hypothyroidism, unspecified Microalbumin, Random (w Creat) Today I10 - Essential (primary) hypertension Comprehensive Seymour. Panel Fast Today I10 - Essential (primary) hypertension Medications: New epinephrine (EpiPen 2-Efrem) for 2 doses 0.3 mg (0.3 mL) IM ONCE 30 days PRN 2 ea 0RF anaphylaxis epinephrine (EpiPen 2-Efrem) for 2 doses 0.3 mg (0.3 mL) IM ONCE PRN 2 ea 0RF anaphylaxis 30 days H61.22 - Impacted cerumen, left ear
[2025-05-03 08:51] VITALS: BP 132/66; PULSE 63; TEMP 36.3; O2SAT 98; BMI 23.0
--- OUTSIDE RECORDS SUMMARY | 2025-05-03 09:58 | XMS_ITS | Patient Health Record ---
Author Organization [facility] Address [address] [place] [address] Care Team Providers Care Administrative Tech Name Role Phone Silvia Mcdaniel Primary Care Provider Aubrey Harper Unavailable [phone] Allergies Allergen (clinical drug ingredient) Drug/Non Drug [...] Problem Status W/U Status Risk Notes Problem [id number] Encounter for screening for malignant neoplasm of colon (Z12.11) Active confirmed Problem 021274934 Preprocedural examination (Z01.818) Active confirmed Plan Of Treatment Future Test Test Name Order Date COLONOSCOPY 02/08/2017 Insurance Providers Payer Name Payer Address Payer Phone Subscriber Number Group Number Insured Name Patient Relationship to Insured Coverage Start Date Coverage End Date [place]ARE [place] [address] [place] [address] [id number] EMEKA SANDERSON Self - patient is the insured [facility] [address] [place], [place] [id number] [phone] [id number] EMEKA SANDERSON Self - patient is the insured Medical (General) History Medical History History ICD Code Denies ID,DM,CVA,Lung disease,renal dise ase GERD-uses TUMS prn Hypothyroidism Hyperlipidemia Colonoscopy in 10/[address] Alegre-- no adenomas U/S in 2014 revealed some small gallblad isabella polyps and small hepatic cysts Surgical History Surgery Date(Month/Year) tonsillectomy tubal ligation stapedectomy
== END 2025-05-03 09:54 | disposition home or self-care (01) ==
LOC: HO.HMCH 08:43
PROVIDERS: PCP Physician Assistant; Visit Provider Physician Assistant
DX: E78.1 Pure hyperglyceridemia (principal); I10 Essential (primary) hypertension; H90.3 Sensorineural hearing loss, bilateral; M19.041 Primary osteoarthritis, right hand; H61.22 Impacted cerumen, left ear

== ENCOUNTER → 2025-05-03 08:42 | Outpatient (BNVA) | payer MEDICARE, BC, SELFPAY | PROVIDERS: PCP Physician Assistant; Visit Provider Physician Assistant | DX: E78.1 Pure hyperglyceridemia (principal); I10 Essential (primary) hypertension; H90.3 Sensorineural hearing loss, bilateral; M19.041 Primary osteoarthritis, right hand; H61.22 Impacted cerumen, left ear | CPT/HCPCS: 69210; 99212 ==

== ENCOUNTER 2025-06-30 09:29 | Outpatient (REF) | payer SELFPAY ==
--- OUTSIDE RECORDS SUMMARY | 2025-06-30 10:33 | XMS_ITS | Patient Health Record ---
Author Organization [facility] Address [address] [place] [address] Care Team Providers Care Rnp Name Role Phone Silvia Mcdaniel Primary Care Provider UnavailAubrey Suazo Unavailable [phone] Allergies Allergen (clinical drug ingredient) Drug/Non Drug [...] Problem Status W/U Status Risk Notes Problem Screening for malignant neoplasm of colon (628434654) Encounter for screening for malignant neoplasm of colon (Z12.11) Active confirmed Problem Preprocedural examination ([id number]) Preprocedural examination (Z01.818) Active confirmed Plan Of Treatment Future Test Test Name Order Date COLONOSCOPY 02/08/2017 Insurance Providers Payer Name Payer Address Payer Phone Subscriber Number Group Number Insured Name Patient Relationship to Insured Coverage Start Date Coverage End Date [place]ARE OF [place] [address] [place] [id number] [phone] [id number] EMEKA SANDERSON Self - patient is the insured [facility] [address] [place], [place] [id number] [phone] [id number] EMEKA SANDERSON Self - patient is the insured Medical (General) History Medical History History ICD Code Denies [place],DM,CVA,Lung disease,renal dise ase GERD-uses TUMS prn Hypothyroidism Hyperlipidemia Colonoscopy in 10/[address] Alegre-- no adenomas U/S in 2014 revealed some small gallblad isabella polyps and small hepatic cysts Surgical History Surgery Date(Month/Year) tonsillectomy tubal ligation stapedectomy
--- NOTE | 2025-06-30 12:08 | MHC.AU.HA1 ---
Hearing Aid Evaluation Date of Visit: 06/30/25 Historical Information: Description of Hearing: Right Ear: Moderate to severe mixed hearing loss; Left Ear: Severe to profound mixed hearing loss Current personal amplification information: Phonak Doris B70-SP BTEs fit in March 2017 Summary: Ready to pursue new HAs due to age of current pair. Discussed options including manufacturers, styles, technology, bluetooth, rechargeability. Rosa M opted to stay with same map editor and style. Advised Phonak standard rechargeable BTE not powerful enough for severity of hearing loss. Rosa M agreeable to continuing with battery-powered HAs. Currently uses acrylic half shell EMs which reportedly start to hurt after a full day use. Agreeable to trying softer silicone material. Impressions taken, bilaterally, without incident. Sent to [facility]. *Advised of possible FAM benefit via Upplication insurance. Rosa M opted out of insurance benefit, reporting she would prefer to self pay to expedite process and may try to submit for reimbursement afterwards. Advised Upplication requires prior authorization so cannot guarantee any reimbursement if opting to forgo PA process. Rosa M understood and still opted to move forward as self-pay for HAs. Hearing Aid Prescription: Based on the individual?s shared listening needs, communication environments, dexterity, desire for connectivity, and personal preferences, the following prescription for amplification has been made: Right ear: Make, Model, Color: Phonak Yoselyn L70-SP Color: Sand Beige Battery Size: 13 Type of Earmold/Dome/CShell/SlimTip: [employer] 60 shore half shell Left ear: Left ear prescription to be same as Right Hearing Aid above: Make, Model, Color: Phonak Yoselyn L70-SP Color: Sand Beige Battery Size: 13 Type of Earmold/Dome/CShell/SlimTip: [employer] 60 shore half shell Plan of Care: Patient wishes to purchase hearing aids as prescribed Action Taken/Action Needed: Hearing Instrument Fitting to be scheduled when materials arrive Primary Diagnosis: H90.6 Mixed Hearing Loss, Bilateral Signature: Provider: Angélica Bhatti, [facility]
== END 2025-06-30 09:30 | disposition home or self-care (01) ==
LOC: HO.HAP 09:29
PROVIDERS: Visit Provider Physician Assistant
DX: Z46.1 Encounter for fitting and adjustment of hearing aid (principal); H90.6 Mixed conductive and sensorineural hearing loss, bilateral
CPT/HCPCS: 92590